=== PATIENT | female | born 1940 | race Caucasian/White ===

== ENCOUNTER → 2024-10-09 | Outpatient (CLI) | payer MEDICARE, BC, OTHER, SELFPAY ==
[2024-10-09 12:12] LABS: Basophils % (Auto) 1 % (0-2.5); Eosinophils # (Auto) 0.1 Thou/mm3 (0.0-0.5); Eosinophils % (Auto) 3 % (0-10); Hematocrit 48.4 % (36.0-46.0); Hemoglobin 15.2 g/dL (12.0-16.0); Immature Granulocytes % (Auto) 0 % (0-0); Immature Granulocytes Auto 0.01 Thou/mm3 (0.00-0.00); Lymphocytes # (Auto) 0.9 Thou/mm3 (1.0-4.8); Lymphocytes % (Auto) 25 % (10-50); Mean Corpuscular HGB Conc 31.4 g/dl (31.0-37.0); Mean Corpuscular Hemoglobin 29.6 pg (25.0-35.0); Mean Corpuscular Volume 94 fL (80-100); Monocytes # (Auto) 0.7 Thou/mm3 (0.0-0.8); Monocytes % (Auto) 18 % (0-12); Neutrophils % (Auto) 53 % (37-80); Nucleated Red Blood Cell % 0 /100 WBC (0); Platelet Count 166 Thou/mm3 (140-440); RDW Standard Deviation 52.5 fL (36.4-46.3); Red Blood Count 5.13 Miln/mm3 (4.00-5.20); White Blood Count 3.8 Thou/mm3 (3.6-11.0)
[2024-10-09 12:23] LABS: Albumin, Serum 4.4 gm/dL (3.4-4.8); Anion Gap 10 (7-16); BUN/Creatinine Ratio 45 Ratio (12-20); Blood Urea Nitrogen 68 mg/dL (9-23); Calcium 9.6 mg/dL (8.3-10.6); Calcium (Corrected) 9.6 mg/dL (8.5-10.1); Chloride 89 mMol/L (98-107); Creatinine (Component) 1.5 mg/dL (0.6-1.3); Glucose 100 mg/dL (74-106); Osmolality,Calculated 297 (275-295); Phosphorous 4.9 mg/dL (2.4-5.1); Potassium 3.3 mMol/L (3.4-5.1); Sodium 139 mMol/L (136-145); eGFR 34 See Note
[2024-10-09 12:27] LABS: B-Type Natriuretic Peptide 130 pg/mL (0-100)
== END | disposition home or self-care (01) ==
LOC: COPL 11:23
PROVIDERS: PCP Specialist; Referring Provider Specialist; Visit Provider Specialist
DX: I11.0 Hypertensive heart disease with heart failure (principal); I50.43 Acute on chronic combined systolic (congestive) and diastolic (congestive) heart failure
CPT/HCPCS: 36415; 80069; 83880; 85025

== ENCOUNTER 2024-12-31 10:59 | Inpatient (IN) | payer MEDICARE, BC, OTHER, SELFPAY ==
[2024-12-31] VITALS (10 sets, daily range): BP systolic 124–202; BP diastolic 75–111; PULSE 68–99; RESP 17–92; TEMP 36.4–37.7; O2SAT 93–98; BMI 21.4
--- NOTE | 2024-12-31 11:09 | EKG_ITS ---
[facility] Test Date: 2024-12-31 Pat Name: ESTELA BELLO Department: Room: - Gender: Female [employer]: : 1940 Requested By: Lele Iyer Order Number: [id number] Reading MD: Lele Iyer Measurements Intervals [place] Rate: 82 P: LA: QRS: -84 QRSD: 165 T: 99 QT: 399 QTc: 467 Interpretive Statements ELECTRONIC VENTRICULAR PACEMAKER ABNORMAL RHYTHM ECG Compared to ECG 05/08/2024 10:52:30 No significant changes /store/S0/[id number].pdf
--- NOTE | 2024-12-31 11:09 | XR_ITS ---
Examination: AP chest single view Technique: AP portable upright chest single view Exam date and time: December 31, 2024 1141 hrs. Comparison May 07, 2024 Indications: Sepsis shortness of breath today. Findings: Mild CHF Moderate enlargement cardiac contour Aortic valve replacement Thoracic aortic stent Cardiac leads satisfactory position Prominent vascular congestion with perihilar edema Right base pneumonia Prominent osteopenia Impression: Mild CHF Right base pneumonia
--- NOTE | 2024-12-31 11:10 | PD.EDADULT ---
ED General RME/HPI General Chief complaint: Shortness of Breath/Dyspnea Stated complaint: SOB Time Seen by Provider: 12/31/24 11:07 Arrival date/time: 12/31/24 10:59 CC: Shortness of breath HPI ongoing for past several days patient presents to the ER via EMS who report patient oxygen saturations of 85% on 1 L nasal cannula that she is wearing at home. They immediately put her on 6 L he responded 96% the patient has obvious gurgling is tachypneic tachycardic. Related Data Home Medications ?Medication ?Instructions ?Recorded ?Confirmed primidone 250 mg tablet 250 mg PO BID 10/29/19 05/08/24 apixaban 5 mg tablet (Eliquis) 5 mg PO DAILY 08/15/23 05/08/24 atorvastatin 40 mg tablet 40 mg PO QPM 08/15/23 05/08/24 dapagliflozin propanediol 10 mg 10 mg PO QAM 08/15/23 05/08/24 tablet (Farxiga) levothyroxine 75 mcg tablet 75 mcg PO QDAY 08/15/23 05/08/24 (Synthroid) potassium chloride 20 mEq/15 mL 20 meq PO EVERYOTHERDAY 08/15/23 05/08/24 oral liquid vortioxetine 10 mg tablet 10 mg PO QDAY 08/15/23 05/08/24 (Trintellix) carboxymethylcellulose sodium 1 % 1 drp ophthalmic (eye) BID 05/08/24 05/08/24 eye liquid gel drops carboxymethylcellulose sodium 1 % 2 drp ophthalmic (eye) BID 05/08/24 05/08/24 eye liquid gel drops magnesium oxide 400 mg PO QDAY 05/08/24 05/08/24 Previous Rx's ?Medication ?Instructions ?Recorded hydrocodone 5 mg-acetaminophen 325 1 tab PO Q6H PRN pain (scale score 08/16/23 mg tablet 7-10) #20 tabs losartan 25 mg tablet 25 mg PO QDAY #30 tabs 05/10/24 Allergies Allergy/AdvReac Type Severity Reaction Status Date / Time Penicillins Allergy Mild Rash Verified 05/07/24 09:03 Sulfa (Sulfonamide Allergy Mild Rash Verified 05/07/24 09:03 Antibiotics) Review of Systems Review of Systems Narrative Review of Systems: GEN: No fever, no chills, no weight loss EYES: No discharge, no visual changes, no pain HEENT: No ear pain, no congestion, no sore throat PULM: + shortness of breath, no cough, no congestion CV: No chest pain, no dyspnea on exertion, no palpitations GI: No nausea, no vomiting, no diarrhea, no pain, no constipation : No frequency, no urgency, no dysuria MUSC/SKEL: No joint pain, no back pain SKIN: No rash PSYCH: No hallucinations, no depression HEME/LYMPH: No easy bleeding or bruising tendencies NEURO: No weakness, no headache Past Medical History Past Medical History NEUROLOGIC: Positive Cerebrovascular Accident (x2) and Transient Ischemic Attacks (TIA); Negative Seizures CARDIAC: Positive Cardiac Disorders, Cardiac Arrhythmia, Atrial Fibrillation, Coronary Artery Disease, Hypercholesterolemia, Congestive Heart Failure, Valvular Heart Disease, Edema, Pericarditis and Hypertension RESPIRATORY: Positive Chronic Obstructive Pulmonary Disease (COPD), Pneumonia and Pulmonary Edema GASTROINTESTINAL: Negative Gastrointestinal Disorders GENITOURINARY: Negative Genitourinary Disorders or Renal Disease REPRODUCTIVE: Positive Previous Pregnancies MUSCULOSKELETAL: Positive Musculoskeletal Disorders, Rheumatoid Arthritis and Gout ENT: Positive Cataracts and Deafness ENDOCRINE: Positive Endocrine Disorders and Hypothyroidism; Negative Diabetes Mellitus Type 1 or Diabetes Mellitus Type 2 HEMATOLOGIC: Negative Blood Disorders PSYCHO/SOCIAL: Positive Depression OTHER HISTORY: Positive Cancer; Negative Autoimmune Disease, Blood Transfusions, Blood Transfusion Reaction or Anesthesia Reactions Family History FAMILY HISTORY: Negative Family Psychiatric Problems, Family Respiratory Disorders, Family Cardiac Disorders, Family Gastrointestinal Problems, Family Cancer, Family Surgery or Family Anesthesia Reaction Surgical History SURGICAL: Positive Cardiac Surgery, Open Heart Surgery (Mitral valve), Valve Replacement (Mitral valve, TAVR), Coronary Stent, Pacemaker, Angiogram, Ear Surgery, Abdominal Surgery and Hysterectomy Social History SMOKING STATUS: Former smoker SECOND HAND EXPOSURE: No SUBSTANCE USE: does not use ED Exam Narrative Physical exam: [General: Thin but not emaciated, in mild discomfort but not in any acute distress Head normocephalic HEENT: Within acceptable limits Neck is supple nontender Chest equal chest rise nontender to palpation Respiratory: Audible expiratory crackles bibasilar no wheezing. CV: Rate rhythm is regular tachycardic no murmurs rubs or clicks Abdomen is soft nontender no masses positive bowel sounds all 4 quadrants Back: No CVA tenderness no spinous process tenderness from cervical spine thoracic and lumbar spine Skin: Intact no petechiae rash induration ulceration or crepitus Extremities: Moving all extremity against resistance cap refill less than 2 seconds neurosensory intact Neuro: Awake alert oriented x2, person and place, Glascow coma 15 no focal deficits] Course Course Course Narrative: Patient's case clinical condition and laboratory results as well as diagnostic imaging discussed with resident for Dr. Tovar, attending agrees to accept the patient for admission. Quality Measures none Orders Category Date Time Status Bedside COVID-19 Antigen Test NOW Care 12/31/24 11:07 Active Bedside Influenza A&B Antigen Test NOW Care 12/31/24 11:10 Completed Electrical Intern STAT Care 12/31/24 11:09 Active Continuous Pulse Oximetry STAT Care 12/31/24 11:09 Completed EKG (ED ONLY) *Do not use* NOW Care 12/31/24 11:09 Completed In and Out Catheter X1PRN Care 12/31/24 11:09 Active Insert IV NOW Care 12/31/24 11:09 Active NPO STAT Care 12/31/24 11:09 Active Strict Intake and Output Routine Care 12/31/24 11:09 Ordered EKG (ED Only) Stat Exams 12/31/24 11:09 Draft XR chest 1V SEPSIS PROTOCOL Stat Exams 12/31/24 11:09 Completed ABG [Arterial Blood Gas] Stat Lab 12/31/24 11:54 Completed B-Type Natriuretic Peptide Stat Lab 12/31/24 12:20 Completed Blood Culture (Lab) Stat Lab 12/31/24 12:20 Received CBC Stat Lab 12/31/24 12:20 Completed Comprehensive Metabolic Panel Stat Lab 12/31/24 12:20 Completed LDH (Lactate Dehydrogenase) Stat Lab 12/31/24 12:20 Completed Lactate (Lactic Acid) Stat Lab 12/31/24 12:20 Results Lipase Stat Lab 12/31/24 12:20 Completed Magnesium Stat Lab 12/31/24 12:20 Completed Partial Thromboplastin Time Stat Lab 12/31/24 12:20 Completed Phosphorous Stat Lab 12/31/24 12:20 Completed Procalcitonin Stat Lab 12/31/24 12:20 Completed Prothrombin Time with INR Stat Lab 12/31/24 12:20 Completed Troponin I Stat Lab 12/31/24 12:20 Completed Urinalysis Stat Lab 12/31/24 11:09 Ordered Urine Culture Stat Lab 12/31/24 11:09 Ordered Ondansetron Inj [Zofran Inj] Med 12/31/24 12:20 Discontinued 4 mg .ROUTE .STK-MED ONE Ondansetron Inj [Zofran Inj] Med 12/31/24 12:20 Discontinued 4 mg IV X1 ONE cefTRIAXone [Rocephin] 1,000 mg Med 12/31/24 12:06 Discontinued Sodium Chloride 0.9% (P) [Ns 0.9% (P)] 50 ml IV NOW hydrALAZINE INJ [Apresoline Inj] Med 12/31/24 12:05 Discontinued 10 mg IV X1 ONE Oxygen Delivery NOW RT 12/31/24 11:09 Active Vital Signs Vital signs: Vital Signs Temperature 99.3 F 12/31/24 11:03 Pulse Rate 68 12/31/24 11:03 Respiratory Rate 18 12/31/24 11:03 Blood Pressure 195/101 H 12/31/24 11:03 Pulse Oximetry (%) 93 L 12/31/24 11:03 Oxygen Delivery Method Nasal Cannula 12/31/24 11:03 Oxygen Flow Rate 6 12/31/24 11:03 [facility] Patient data External records reviewed:: [facility] previous records and EMS form Clinical information provided by:: patient and EMS Social determinants that could affect healthcare access:: none Patient has the following chronic illnesses:: CAD A-fib congestive heart failure pacemaker How is presenting disease/condition affected by chronic disease/condition?: exacerbated by Evaluation data The following diagnostics were reviewed and interpreted by me:: lab results, radiology exam(s) and EKG tracing(s) Lab and/or radiology exams considered but not ordered:: EKG performed at 1203 shows a ventricular rate of 82 QRS of 165 QTc of 437 is electronically ventricular paced rhythm with pacer spikes. Influenza A positive Chest x-ray shows significant right base pneumonia as interpreted by me read by radiology CBC shows no significant leukocytosis no anemia or thrombocytopenia Coags within acceptable limits ABG shows a pH of 7.30 pCO2 56 pO2 of 65 bicarb of 28. CMP shows sodium 142 potassium 3.5 chloride 104 CO2 of 25.4 gap of 13 BUN of 24 creatinine 1.0 glucose of 122 Lactic of 2.1 Pro-Raman of 0.10 T. bili of 1.0, mild elevated transaminases Troponin at 0.032 BNP of 1172 Lipase of 41. Interpretation Summary: Patient is hypoxemic influenza A positive with pneumonia Medications Medications considered but not ordered:: None Medication administrations:: Medication Administration History Discontinued Medications Hydralazine HCl (Hydralazine Inj 20 Mg/Ml Vial) 10 mg IV X1 ONE Stop: 12/31/24 12:06 Last Admin: 12/31/24 12:14 Dose: 10 mg Documented By: LINDA Ceftriaxone Sodium 1,000 mg/ (Sodium Chloride) 50 mls @ 100 mls/hr IV NOW ONE Stop: 12/31/24 12:35 Last Admin: 12/31/24 12:34 Dose: 100 mls/hr Documented By: JULISSA Ondansetron HCl (Ondansetron Inj 2 Mg/Ml Inj 2 Ml) 4 mg IV X1 ONE; Protocol Stop: 12/31/24 12:21 Last Admin: 12/31/24 12:34 Dose: 4 mg Documented By: JULISSA Ondansetron HCl (Ondansetron Inj 2 Mg/Ml Inj 2 Ml) Confirm Administered Dose 4 mg .ROUTE .STK-MED ONE Stop: 12/31/24 12:21 Last Admin: 12/31/24 12:36 Dose: Not Given Documented By: JULISSA Non-Admin Reason: Duplicate Medication on eMAR None Consultations Consultation(s) initiated? (list below): No Diagnosis Differential Diagnosis ED Complaint MDM: Pneumonia hypoxemia sepsis Most likely diagnosis given after review of the tests above:: Pneumonia hypoxia influenza shortness of breath Admission Indicated Admission indicated?: indicated Explain why admission is indicated or not indicated:: Further medical management Admission Request Was there a request for admission?: No Disposition Plan Disposition Plan: Admit Medical Decision Making Differential Diagnosis Differential Diagnosis: Pneumonia hypoxemia sepsis Lab Data 12/31/24 12:20 12/31/24 12:20 Labs: Lab Results 12/31/24 12/31/24 Range/Units 11:54 12:20 WBC 11.7 H (3.6-11.0) Thou/mm3 RBC 5.04 (4.00-5.20) Miln/mm3 Hgb 15.4 (12.0-16.0) g/dL Hct 49.0 H (36.0-46.0) % MCV 97 (80-100) fL MCH 30.6 (25.0-35.0) pg MCHC 31.4 (31.0-37.0) g/dl RDW Std Deviation 63.5 H (36.4-46.3) fL Plt Count 171 (140-440) Thou/mm3 Neut % (Auto) 83 H (37-80) % Lymph % (Auto) 9 L (10-50) % [place] % (Auto) 8 (0-12) % Eos % (Auto) 0 (0-10) % Baso % (Auto) 0 (0-2.5) % Neut # (Auto) 9.7 H (1.8-7.7) Thou/mm3 Lymph # (Auto) 1.1 (1.0-4.8) Thou/mm3 [place] # (Auto) 0.9 H (0.0-0.8) Thou/mm3 Eos # (Auto) 0.0 (0.0-0.5) Thou/mm3 Baso # (Auto) 0.0 (0.0-0.2) Thou/mm3 Immature Gran # (Auto) 0.04 H (0.00-0.00) Thou/mm3 Absolute Nucleated RBC 0.00 (0.00-0.00) Thou/mm3 Immature Gran % 0 (0-0) % Nucleated RBC % 0 (0) /100 WBC PT 13.0 H (9.0-12.2) Seconds INR 1.2 (0.9-1.3) APTT 28.2 (22.0-36.0) Seconds Puncture Site Right Radial ABG pH 7.30 L (7.35-7.45) ABG pCO2 56 H (32.0-48.0) mmHg ABG pO2 65 L (83-108) mmHg ABG HCO3 28 H (20-26) mEq/L ABG O2 Saturation 92 (91-98) % ABG Base Excess 0 (-3-3) Oxygen Liter Flow 6 L/min FiO2 21 % Sodium 142 (136-145) mMol/L Potassium 3.5 (3.4-5.1) mMol/L Chloride 104 (98-107) mMol/L Carbon Dioxide 25.4 (20.0-31.0) mMol/L Anion Gap 13 (7-16) BUN 24 H (9-23) mg/dL Creatinine 1.0 (0.6-1.3) mg/dL Estim Creat Clear Calc 29.0 L (>60) mL/min eGFR 55 L (60 - ) See Note BUN/Creatinine Ratio 24 H (12-20) Ratio Glucose 122 H (74-106) mg/dL Calculated Osmolality 288 (275-295) Lactic Acid 2.1 H (0.4-2.0) mMol/L Calcium 9.5 (8.3-10.6) mg/dL Corrected Calcium 9.5 (8.5-10.1) mg/dL Phosphorus 3.7 (2.4-5.1) mg/dL Magnesium 2.4 (1.6-2.6) mg/dL Total Bilirubin 1.0 (0.3-1.2) mg/dL AST 62 H (0-34) U/L ALT 74 H (10-49) U/L Alkaline Phosphatase 256 H (46-116) U/L Lactate Dehydrogenase 266 H (120-246) U/L Troponin I 0.032 (0.0-0.045) ng/mL B-Natriuretic Peptide 1172 H* (0-100) pg/mL Total Protein 7.7 (5.7-8.2) gm/dL Albumin 4.5 (3.4-4.8) gm/dL Globulin 3.2 (2.3-3.5) gm/dL Albumin/Globulin Ratio 1.4 (1.2-2.2) Lipase 41 (12-53) U/L Procalcitonin 0.10 (0.0-0.49) ng/ml Discharge Plan Plan Patient Disposition: Other Care w/in Hosp ([facility]) Patient condition on transfer: Stable Prescriptions/Referrals Prescriptions/Med Rec: No Action primidone 250 mg Tablet 250 mg PO BID atorvastatin 40 mg Tablet 40 mg PO QPM potassium chloride 20 mEq/15 mL Liquid 20 meq PO EVERYOTHERDAY levothyroxine [Synthroid] 75 mcg Tablet 75 mcg PO QDAY Eliquis 5 mg Tablet 5 mg PO DAILY Trintellix 10 mg Tablet 10 mg PO QDAY dapagliflozin propanediol [Farxiga] 10 mg Tablet 10 mg PO QAM hydrocodone-acetaminophen 5-325 mg tablet 1 tab PO Q6H MDD 4 PRN (Reason: pain (scale score 7-10)) Qty: 20 0RF carboxymethylcellulose sodium 1 % Drops, Liquid Gel 2 drp OPHTHALMIC (EYE) BID Rx Instructions: right eye carboxymethylcellulose sodium 1 % Drops, Liquid Gel 1 drp OPHTHALMIC (EYE) BID Rx Instructions: left eye magnesium oxide 400 mg magnesium Tablet 400 mg PO QDAY losartan 25 mg tablet 25 mg PO QDAY Qty: 30 0RF Referrals: Isak Paniagua [Primary Care Provider] - In 1 week Problem List Clinical Impression: Pneumonia, Hypoxia, Influenza A, Shortness of breath Patient/Caregiver Discharge Instructions Print Language: Libyan Stand Alone Forms: Renetta Award Info., Patient Portal Info Letter PA/WORKERS' COMPENSATION MEDIATOR Supervising Physician PA/WORKERS' COMPENSATION MEDIATOR Supervising Physician: Lele Hoang ENP
[2024-12-31 12:05] LABS: Base Excess 0 (-3-3); HCO3 28 mEq/L (20-26); Inspired O2, VO2 Liters 6 L/min; Inspired Oxygen, FIO2 21 %; O2 Saturation 92 % (91-98); PCO2 56 mmHg (32.0-48.0); PO2 65 mmHg (83-108)
[2024-12-31 12:08] LABS: Allen Test Not Performed; Puncture Site Right Radial
[2024-12-31] MEDS: hydrALAZINE INJ 20 MG/ML VIAL 10 MG IV (12:14)
[2024-12-31] MEDS: cefTRIAXone 1,000 MG in SODIUM CHLORIDE 0.9% (P) 50 ML 100 MG IV (12:34)
[2024-12-31] MEDS: ONDANSETRON INJ 2 MG/ML INJ 2 ML 4 MG IV (12:34)
[2024-12-31 12:45] LABS: Lactate (Lactic Acid) 2.1 mMol/L (0.4-2.0)
[2024-12-31 13:01] LABS: Basophils % (Auto) 0 % (0-2.5); Eosinophils % (Auto) 0 % (0-10); Hemoglobin 15.4 g/dL (12.0-16.0); Immature Granulocytes % (Auto) 0 % (0-0); Immature Granulocytes Auto 0.04 Thou/mm3 (0.00-0.00); Lymphocytes # (Auto) 1.1 Thou/mm3 (1.0-4.8); Lymphocytes % (Auto) 9 % (10-50); Mean Corpuscular HGB Conc 31.4 g/dl (31.0-37.0); Mean Corpuscular Hemoglobin 30.6 pg (25.0-35.0); Mean Corpuscular Volume 97 fL (80-100); Monocytes # (Auto) 0.9 Thou/mm3 (0.0-0.8); Monocytes % (Auto) 8 % (0-12); Neutrophils # (Auto) 9.7 Thou/mm3 (1.8-7.7); Neutrophils % (Auto) 83 % (37-80); Nucleated Red Blood Cell % 0 /100 WBC (0); Platelet Count 171 Thou/mm3 (140-440); RDW Standard Deviation 63.5 fL (36.4-46.3); Red Blood Count 5.04 Miln/mm3 (4.00-5.20); White Blood Count 11.7 Thou/mm3 (3.6-11.0)
[2024-12-31 13:10] LABS: INR 1.2 (0.9-1.3); Partial Thromboplastin Time 28.2 Seconds (22.0-36.0)
[2024-12-31 13:16] LABS: B-Type Natriuretic Peptide 1172 pg/mL (0-100)
[2024-12-31 13:21] LABS: Alanine Aminotransferase 74 U/L (10-49); Albumin, Serum 4.5 gm/dL (3.4-4.8); Albumin/Globulin Ratio 1.4 (1.2-2.2); Alkaline Phosphatase 256 U/L (46-116); Anion Gap 13 (7-16); Aspartate Amino Transferase 62 U/L (0-34); BUN/Creatinine Ratio 24 Ratio (12-20); Blood Urea Nitrogen 24 mg/dL (9-23); Calcium 9.5 mg/dL (8.3-10.6); Calcium (Corrected) 9.5 mg/dL (8.5-10.1); Carbon Dioxide 25.4 mMol/L (20.0-31.0); Chloride 104 mMol/L (98-107); Globulin 3.2 gm/dL (2.3-3.5); Glucose 122 mg/dL (74-106); LDH (Lactate Dehydrogenase) 266 U/L (120-246); Lipase 41 U/L (12-53); Magnesium 2.4 mg/dL (1.6-2.6); Osmolality,Calculated 288 (275-295); Phosphorous 3.7 mg/dL (2.4-5.1); Potassium 3.5 mMol/L (3.4-5.1); Sodium 142 mMol/L (136-145); Total Protein 7.7 gm/dL (5.7-8.2); Troponin I 0.032 ng/mL (0.0-0.045); eGFR 55 See Note
[2024-12-31 14:02] LABS: Thyroid Stimulating Hormone 6.88 uIU/mL (0.55-4.78)
--- NOTE | 2024-12-31 15:09 | ESHP_ITS ---
<Statement entered by Ollie Tovar MD - 01/10/25 08:03> I reviewed above note and agree with findings and plans. I have also personally examined the patient with medicine team and went over assessment and plan with medical team including internet researcher and resident physician. <Statement entered by Dago Hendrickson MD - 01/01/25 13:00> Senior Resident Attestation: I supervised/discussed management plan with internet researcher physician Dr. Young, and was involved in the care of this patient. I personally saw and examined the patient and discussed the assessment and plan with the entire medicine team, including my attending. I agree with the assessment and plan as documented. Patient is a 84 years old female with PMHx of HFpEF (55-60%), aortic valve replacement and MVR (2013), dual chamber pacemaker, paroxysmal afib/flutter (s/p Ablation), incarcerated hernia repair (2022), ?COPD, chronic respiratory failure on 1L at home, previous smoker, HTN, CAD s/p PCI 3 stents, ?CABG, hypothyroidism, HLD who presented due to SOB and some chest pain, was found to have pneumonia on CXR and to be flu positive and was admitted due to [facility] for further management. Patient's care was discussed with attending physician, Dr. Tovar. Dago Hendrickson MD PGY-2. Documentation for date of: 12/31/24 HPI History of Present Illness History of present illness: Sammi is a 84 y/o female with PMHx of HFpEF (55-60%), Aortic valve replacement and MVR (2013), dual chamber pacemaker, paroxysmal afib/flutter (s/p Ablation), incarated hernia repair (2022), ? COPD, chronic respiratory failure on 1L at home, previous smoker, HTN, CAD s/p PCI 3 stents, ?CABG, hypothyroidism, HLD, who comes for evaluation for SOB and some chest pain, onset this morning, saturating 85 percent at home, with associated cough and fatigue. Pt reports having similar symptoms to these before. She does report that she was hospitalized at [facility] 3 months ago for pneumonia and similar symptoms. After this hospitalized, she was given 1L home oxygen. She had her temperature measured at home which was 99.1. Of note, pt's last week in [facility]. She has been having family come up to take care of her since her 's . Daughter present at bedside had said that she may have had possible small strokes in the past. Daughter also says that she is very hard of hearing and also may have dementia, however is able to respond to questions. Daughter also says that family will come help patient at home, however longterm has not been ruled out at this time. Denies any recent travel, however does say sick contact last week was her who as well. Also said that she was on a water pill at 1 point and lost about 20 pounds and is not on it anymore. Denies having history of coronary artery bypass grafts, but does say that she has had 3 stents before, and has had open heart surgery for her valve repairs and replacements. Denies getting the gait a is stable flu shot this year. ED course: Patient had arrived with a temperature of 99.3, heart rate of 68, tachypneic, saturating 85% on 1 L. She was worked up and was found to have a sodium 142, potassium 3.5, bicarb of 25, BUN/creatinine of 24 and 1.0 respectively, blood sugar of 122, lactate of 2.1, AST ALT 62 and 74 respectively, magnesium of 2.4, phosphorus 3.7, BNP of 1172, white count of 11.7. ABG was done which showed pH of 7.3, pCO2 56, bicarb of 28. Troponin 0.032, Pro-Raman 0.10, lipase 41. EKG showed paced rhythm. Chest x-ray did show mild CHF and right base pneumonia. She was given Rocephin x 1 hydralazine 10 mg IV, was put on 6 L. Medicine was consulted and patient was made to floors PMHx: As above Surgical Hx: Hysterectomy, hernia repair, PCI, ?CABG, Valve replacements including MVR and aortic valve replacement Allergies: Pencilins and sulfa abx Meds: Metoprolol 25 mg, magnesium 1 mg, Eliquis 2.5, primidone 250 mg twice daily, Trintellix 10 mg once a day, digoxin, Lipitor 40, Farxiga 10 mg, Synthroid 75 mcg Family history: Brother of a brain aneurysm in 50s, of heart failure, mother of cirrhosis, other brother of cirrhosis Social history: Was born in [facility] [place] Is able to walk on her own, uses 1 L of oxygen at baseline. Has roughly about [id number]-utwm smoking history but quit in the 70s. Has half a glass of wine once a month, has never been a heavy drinker. No history of IV or oral drug use. Lives alone as her last week. Review of Systems Review of Systems Narrative Review of Systems: Constitutional: No fever, chills, fatigue, weakness, weight loss HEENT: No eye pain, vision loss, ear pain, hearing loss, dysphagia, Cardiovascular: + chest pain, palpitations, edema, pain with walking Respiratory: No cough, + shortness of breath, no wheezing GI: No NVD, abdominal pain, constipation, blood in stool, loss of appetite, heartburn Extremities: No presence of pitting edema MSK: No back pain, joint pain, joint swelling Neuro: No dizziness, numbness, weakness, headaches, seizures, tremors Psych: No anxiety, depression Exam Vital Signs Temp Pulse Resp BP Pulse Ox O2 Del Method O2 Flow Rate 99.3 F 91 36 H 124/99 H 94 L Nasal Cannula 9 12/31/24 11:03 12/31/24 12:45 12/31/24 12:45 12/31/24 12:45 12/31/24 12:45 12/31/24 12:45 12/31/24 12:45 Narrative Exam General: AAOx3, elderly, frail, appears to be weak and and in some mild distress HEENT: Dry mucous membranes, conjunctiva clear, EOMI, PERRLA, Cardiovascular: Ejection systolic murmur heard in the right upper sternal border, radial pulses +2 bilaterally Pulmonary: No crackles appreciated, no cough, expiratory wheezing GI: No tenderness to light or deep palpitation, no guarding, rigidity, rebound tenderness or distension Extremities: No presence of trace or pitting edema in lower extremities bilaterally, dorsalis pedis pulses +2 bilaterally, venous stasis present bilaterally Neuro: AAOx3, no focal motor or sensory deficits in the UE or LE bilat Psych: Good judgement, thought and behavior. Cooperative Results: Labs 12/31/24 12:20 12/31/24 12:20 Labs: Short CBC 12/31/24 Range/Units 12:20 WBC 11.7 H (3.6-11.0) Thou/mm3 Hgb 15.4 (12.0-16.0) g/dL Hct 49.0 H (36.0-46.0) % Plt Count 171 (140-440) Thou/mm3 BMP 12/31/24 12:20 Sodium 142 Potassium 3.5 Chloride 104 Carbon Dioxide 25.4 BUN 24 H Creatinine 1.0 Glucose 122 H Calcium 9.5 Cardiac Enzymes 12/31/24 Range/Units 12:20 Troponin I 0.032 (0.0-0.045) ng/mL Liver Function 12/31/24 Range/Units 12:20 Total Bilirubin 1.0 (0.3-1.2) mg/dL AST 62 H (0-34) U/L ALT 74 H (10-49) U/L Alkaline Phosphatase 256 H (46-116) U/L Albumin 4.5 (3.4-4.8) gm/dL ABG Interpretation ABG results: 12/31/24 11:54 ABG pH 7.30 L ABG pCO2 56 H ABG pO2 65 L ABG HCO3 28 H ABG O2 Saturation 92 ABG Base Excess 0 Quality Measures Quality Measures none Advance care planning discussed with:: patient Medications Home Medications and Allergies Home Medications ?Medication ?Instructions ?Recorded ?Confirmed ?Type primidone 250 mg tablet 250 mg PO BID 10/29/1905/08 History apixaban 5 mg tablet (Eliquis) 5 mg PO DAILY 08/15/23 05/08/24 History atorvastatin 40 mg tablet 40 mg PO QPM 08/15/23 History dapagliflozin propanediol 10 mg 10 mg PO QAM 08/15/23 05/08/24 History tablet (Farxiga) levothyroxine 75 mcg tablet 75 mcg PO QDAY 08/15/23 History (Synthroid) potassium chloride 20 mEq/15 mL 20 meq PO EVERYOTHERDA Y 08/15/23 05/08/24 History oral liquid vortioxetine 10 mg tablet 10 mg PO QDAY 08/15/2305/08 History (Trintellix) carboxymethylcellulose sodium 1 % 1 drp ophthalmic (ey e) BID 05/08/24 05/08/24 History eye liquid gel drops carboxymethylcellulose sodium 1 % 2 drp ophthalmic (ey e) BID 05/08/24 05/08/24 History eye liquid gel drops magnesium oxide 400 mg PO QDAY 05/08/24 06/04/06 History Allergies Allergy/AdvReac Type Severity Reaction Status Date / Time Penicillins Allergy Mild Rash Verified 05/07/24 09:03 Sulfa (Sulfonamide Allergy Mild Rash Verified 05/07/24 09:03 Antibiotics) Visit Medications Acetaminophen (Acetaminophen 325 Mg Tablet) 1,000 mg PO Q6H PRN PRN Reason: Fever >100 or pain 1-3 Stop: 01/30/25 14:51 Enoxaparin Sodium (Enoxaparin Sod Inj 40 Mg/0.4 Ml Syringe) 40 mg SC QDAY [facility] Stop: 01/15/25 08:59 Ipratropium Sycamore (Ipratropium Rt 0.5 Mg/ 2.5 Ml Nebu) mg INH Q6HRRT ROD Stop: 01/30/25 18:59 Levalbuterol HCl (Levalbuterol Rt 0.63 Mg/3 Ml Nebu) 0.63 mg INH Q6HRRT ROD Stop: 01/30/25 18:59 Ondansetron HCl (Ondansetron Inj 2 Mg/Ml Inj 2 Ml) 4 mg IV Q6H PRN; Protocol PRN Reason: NAUSEA OR VOMITING Stop: 01/30/25 14:51 Sennosides (Senna Tablet) 1 tab PO BID PRN; Protocol PRN Reason: CONSTIPATION Stop: 01/30/25 14:51 Discontinued Medications Hydralazine HCl (Hydralazine Inj 20 Mg/Ml Vial) 10 mg IV X1 ONE Stop: 12/31/24 12:06 Last Admin: 12/31/24 12:14 Dose: 10 mg Ceftriaxone Sodium 1,000 mg/ (Sodium Chloride) 50 mls @ 100 mls/hr IV NOW ONE Stop: 12/31/24 12:35 Last Infusion: 12/31/24 13:05 Dose: Infused Ondansetron HCl (Ondansetron Inj 2 Mg/Ml Inj 2 Ml) 4 mg IV X1 ONE; Protocol Stop: 12/31/24 12:21 Last Admin: 12/31/24 12:34 Dose: 4 mg Potassium Chloride (Potassium Chloride 20 Meq Tabcr) 40 meq PO X1 ONE Stop: 12/31/24 13:34 Assessment & Plan Plan Assessment Sammi is a 84 y/o female with PMHx of HFpEF (55-60%), Aortic valve replacement and MVR (2013), dual chamber pacemaker, paroxysmal afib/flutter (s/p Ablation), incarated hernia repair (2022), ? COPD, chronic respiratory failure on 1L at home, previous smoker, HTN, CAD s/p PCI 3 stents, ?CABG, hypothyroidism, HLD, was admitted for acute hypoxic respiratory failure secondary to influenza pneumonia and possible superimposed bacterial infection #Acute toxic respiratory failure #Influenza pneumonia #? Superimposed bacterial infection #Chronic respiratory failure, on 1 L home oxygen #? COPD Patient recently had tragedy including her dying last week There was concern that patient had sick contact of her Patient does confirm that she did not get the flu shot this year Will be able to cover for commune acquired pneumonia current antibiotic regimen will change if needed Plan: ? Tamiflu 75 mg twice daily ? Rocephin and azithromycin IV ? Follow-up blood cultures ? Follow-up MRSA nares ? Follow-up cocci ? Atrovent and Xopenex every 6 hours ? Wean down oxygen as tolerated #Hypertensive urgency, resolved ? Was given 10 mg IV hydralazine in ED #Acute on chronic exacerbation of HFpEF #History of paroxysmal A-fib/flutter status post ablation #History of dual-chamber pacemaker #History of aortic valve replacement MVR Patient is requiring higher oxygen requirement BNP of 1172, chest x-ray shows mild CHF pattern, however no lower extremity edema appreciated This could be contributing to patient's increased oxygen requirements Takes farxiga at home but does not take water pill Sees Dr. Paniagua in [place] Plan: ? Consider cardiology consult ? Strict YVETTE's ? 2 g sodium diet ? Daily weights ? Keep magnesium and potassium above 2 and 4 respectively to avoid any cardiac arrhythmias ? Will resume GDMT therapy as tolerated ? Lasix 40 mg IV with goal diuresis of -2.5 L ? Follow-up digoxin level ? Continue with Eliquis 2.5 mg twice daily #History of hypothyroidism Plan: ? Resumed home Synthroid 75 mcg #History of CAD status post PCI 3 stents #History of hypertension #History of HLD Is believed that patient does not take aspirin Patient denies having CABG history however does say that she has had 3 stents Previous charts say that patient has had CABG history Plan: ? Will resume home blood pressure medicines as tolerated ? Resumed home Lipitor 40 mg at bedtime #Elevated transaminases DDx: Medication side effect, shock liver, AST 62, ALT 74 Plan: ? Trend with CMP #Health Maintenance Disposition: Telemetry DVT prophylaxis: Eliquis 2.5 mg BID GI prophylaxis: None indicated Diet: Cardiac if patient passes bedside eval CODE STATUS: Full Patient seen and care discussed with my senior resident, Dr. Hendrickson , and my attending physician, Dr. Guy Young, PGY-1
[2024-12-31 15:41] LABS: Reflex Lactate? Y
[2024-12-31 16:11] LABS: Lactic Acid, 3 HR 1.9 mMol/L (0.4-2.0)
[2024-12-31 16:50] LABS: Free T4 (Free Thyroxine) 1.25 ng/dL (0.89-1.76)
[2024-12-31] MEDS: OSELTAMIVIR 75 MG CAPSULE PO (17:01)
[2024-12-31] MEDS: APIXABAN 2.5 MG TABLET PO (17:02)
[2024-12-31] MEDS: POTASSIUM CHLORIDE 20 mEq TABCR 40 MEQ PO (17:03)
[2024-12-31] MEDS: FUROSEMIDE INJ 10 MG/ML 4ML VIAL 40 MG IVP (17:05)
[2024-12-31] MEDS: AZITHROMYCIN INJ 500 MG in SODIUM CHLORIDE 0.9% 250 ML 250 ML 250 MG IV (17:08)
[2024-12-31] MEDS: IPRATROPIUM RT 0.5 MG/ 2.5 ML NEBU INH (18:16)
[2024-12-31] MEDS: LEVALBUTEROL RT 0.63 MG/3 ML NEBU INH (18:16)
--- NOTE | 2024-12-31 18:39 | PC.NURSE ---
received a 85 years old female patient from er via [facility] to room 265.patient is awake, alert and verbaly responsive and able to voice needs. kept comfortable in bed.
[2024-12-31 20:32] LABS: Collection Type, Urine Clean Catch
[2024-12-31 20:41] LABS: Bilirubin,Urine Negative (Negative); Blood,Urine Negative (Negative); Clarity,Urine Clear (Clear/Hazy); Color,Urine Lt-Yellow (Lt Yel-Yel); Glucose, Urine 3+ (Negative); Ketones,Urine Negative (Negative); Leukocyte Esterase,Urine Negative (Negative); Nitrite,Urine Negative (Negative); Protein,Urine 1+ (Neg - Trace); RBC,Urine 1 /hpf (0-3); Specific Gravity,Urine 1.008 (1.001-1.035); Squamous Epithelial Cell,Urine < 1 /hpf (0-5); Urobilinogen,Urine Negative mg/dL (0.0-1.0); WBC,Urine < 1 /hpf (0-5)
[2025-01-01] VITALS (14 sets, daily range): BP systolic 129–156; BP diastolic 68–98; PULSE 70–99; RESP 16–97; TEMP 36.6–37; O2SAT 93–99; BMI 20.1
[2025-01-01] MEDS: LEVALBUTEROL RT 0.63 MG/3 ML NEBU INH ×4 (01:55→17:45)
[2025-01-01] MEDS: IPRATROPIUM RT 0.5 MG/ 2.5 ML NEBU INH ×2 (01:55→07:47)
--- NOTE | 2025-01-01 06:10 | PC.NURSE ---
Not able to complete all admission questions; pt very hard of hearing and hearing aid not functioning at this time; will endorse to primary day rn.
[2025-01-01 06:26] LABS: Basophils % (Auto) 0 % (0-2.5); Eosinophils % (Auto) 0 % (0-10); Hematocrit 41.3 % (36.0-46.0); Hemoglobin 13.2 g/dL (12.0-16.0); Immature Granulocytes % (Auto) 0 % (0-0); Immature Granulocytes Auto 0.02 Thou/mm3 (0.00-0.00); Lymphocytes # (Auto) 0.6 Thou/mm3 (1.0-4.8); Lymphocytes % (Auto) 7 % (10-50); Mean Corpuscular Hemoglobin 30.8 pg (25.0-35.0); Mean Corpuscular Volume 96 fL (80-100); Monocytes # (Auto) 0.6 Thou/mm3 (0.0-0.8); Monocytes % (Auto) 7 % (0-12); Neutrophils # (Auto) 6.7 Thou/mm3 (1.8-7.7); Neutrophils % (Auto) 85 % (37-80); Nucleated Red Blood Cell % 0 /100 WBC (0); Platelet Count 115 Thou/mm3 (140-440); RDW Standard Deviation 62.5 fL (36.4-46.3); Red Blood Count 4.29 Miln/mm3 (4.00-5.20); White Blood Count 7.9 Thou/mm3 (3.6-11.0)
[2025-01-01 06:42] LABS: Glucose Estimated Average 97 mg/dL (80-131)
--- NOTE | 2025-01-01 06:45 | PC.NURSE ---
Able to get ahold of pts son in law and dtr over the phone to complete admission questions.
[2025-01-01 06:49] LABS: Alanine Aminotransferase 49 U/L (10-49); Albumin, Serum 3.6 gm/dL (3.4-4.8); Albumin/Globulin Ratio 1.4 (1.2-2.2); Alkaline Phosphatase 162 U/L (46-116); Anion Gap 11 (7-16); Aspartate Amino Transferase 40 U/L (0-34); BUN/Creatinine Ratio 24 Ratio (12-20); Bilirubin,Total 0.6 mg/dL (0.3-1.2); Blood Urea Nitrogen 29 mg/dL (9-23); Calcium 9.2 mg/dL (8.3-10.6); Calcium (Corrected) 9.5 mg/dL (8.5-10.1); Carbon Dioxide 27.3 mMol/L (20.0-31.0); Cardiac Risk Estimate 1.5 RATIO (3.7-5.6); Chloride 107 mMol/L (98-107); Cholesterol 99 mg/dL (132-200); Creatinine (Component) 1.2 mg/dL (0.6-1.3); Digoxin 0.4 ng/mL (0.8-2.0); Estimated Creatinine Clearance 24.2 mL/min (>60); Globulin 2.6 gm/dL (2.3-3.5); Glucose 86 mg/dL (74-106); HDL Cholesterol 64 mg/dL (40-60); LDL Cholesterol,Calculated 27 mg/dL (0-130); Magnesium 2.2 mg/dL (1.6-2.6); Osmolality,Calculated 293 (275-295); Phosphorous 4.4 mg/dL (2.4-5.1); Potassium 4.7 mMol/L (3.4-5.1); Sodium 145 mMol/L (136-145); Total Protein 6.2 gm/dL (5.7-8.2); Triglycerides 42 mg/dL (30-150); eGFR 44 See Note
[2025-01-01] MEDS: Artificial Tears 225 DROP/15 ML BTL BOTH EYES (08:32)
[2025-01-01] MEDS: FUROSEMIDE INJ 10 MG/ML 4ML VIAL 40 MG IVP (08:33)
[2025-01-01] MEDS: APIXABAN 2.5 MG TABLET PO ×2 (08:33→20:58)
[2025-01-01] MEDS: PRIMIDONE 50 MG TABLET 250 MG PO ×2 (09:11→20:57)
[2025-01-01] MEDS: OSELTAMIVIR 30 MG CAPSULE PO ×2 (09:11→23:18)
--- NOTE | 2025-01-01 09:19 | PCS.ST ---
Swallow Evaluation completed. See report for details. Recommend Dysphagia 3/regular liquids.
--- NOTE | 2025-01-01 09:25 | PC.NURSE ---
Pt. provided with printed information about Influenza A per request.
[2025-01-01] MEDS: DIGOXIN 0.125 MG TABLET PO (10:46)
[2025-01-01] MEDS: cefTRIAXone 1,000 MG in SODIUM CHLORIDE 0.9% (P) 50 ML 100 MG IV ×2 (10:47→20:57)
[2025-01-01] MEDS: ACETAMINOPHEN 500 MG TABLET 1000 MG PO ×2 (10:54→20:17)
--- NOTE | 2025-01-01 13:17 | ESPR_ITS ---
Documentation for date of: 01/01/25 Subjective Subjective Interval history: Pt examined at bedside today. No acute overnight events. Pt reports her SOB has been improving. She still has some lingering cough but it is improving. She just wants to improve with her flu. No other complaints at this time. Exam Vital Signs Temp Pulse Resp BP Pulse Ox O2 Del Method O2 Flow Rate 97.9 F 90 16 135/68 H 95 Nasal Cannula 1 01/01/25 12:00 01/01/25 12:00 01/01/25 12:01/01/25 12:00 01/01/25 12:01/01/25 12:01/01/25 12:00 Narrative Exam General: AAOx3, elderly, frail, appears to be weak and and in some mild distress HEENT: Dry mucous membranes, conjunctiva clear, EOMI, PERRLA, Cardiovascular: Ejection systolic murmur heard in the right upper sternal border, radial pulses +2 bilaterally Pulmonary: No crackles appreciated, no cough, expiratory wheezing GI: No tenderness to light or deep palpitation, no guarding, rigidity, rebound tenderness or distension Extremities: No presence of trace or pitting edema in lower extremities bilaterally, dorsalis pedis pulses +2 bilaterally, venous stasis present bilaterally Neuro: AAOx3, no focal motor or sensory deficits in the UE or LE bilat Psych: Good judgement, thought and behavior. Cooperative Objective Labs 01/01/25 05:37 01/02/25 05:31 Labs: Laboratory Results - last 24 hr 12/31/24 12/31/24 12/31/24 12:20 16:03 20:04 WBC RBC Hgb Hct MCV MCH MCHC RDW Std Deviation Plt Count Neut % (Auto) Lymph % (Auto) [place] % (Auto) Eos % (Auto) Baso % (Auto) Neut # (Auto) Lymph # (Auto) [place] # (Auto) Eos # (Auto) Baso # (Auto) Immature Gran # (Auto) Absolute Nucleated RBC Immature Gran % Nucleated RBC % Sodium 142 Potassium 3.5 Chloride 104 Carbon Dioxide 25.4 Anion Gap 13 BUN 24 H Creatinine 1.0 Estim Creat Clear Calc 29.0 L eGFR 55 L BUN/Creatinine Ratio 24 H Glucose [address] Glu mg/dL Hemoglobin A1c Calculated Osmolality 288 Lactic Acid 1.9 Calcium 9.5 Corrected Calcium 9.5 Phosphorus 3.7 Magnesium 2.4 Total Bilirubin 1.0 AST 62 H ALT 74 H Alkaline Phosphatase 256 H Lactate Dehydrogenase 266 H Troponin I 0.032 B-Natriuretic Peptide 1172 H* Total Protein 7.7 Albumin 4.5 Globulin 3.2 Albumin/Globulin Ratio 1.4 Triglycerides Cholesterol LDL Cholesterol, Calc HDL Cholesterol Cholesterol/HDL Ratio Lipase 41 Procalcitonin 0.10 TSH 6.88 H Free T4 1.25 Ur Collection Type Clean Catch Urine Color Lt-Yellow Urine Clarity Clear Urine pH 6.0 Ur Specific Cecil 1.008 Urine Protein 1+ A Urine Glucose (UA) 3+ A Urine Ketones Negative Urine Blood Negative Urine Nitrite Negative Urine Bilirubin Negative Urine Urobilinogen (Auto) Negative Ur Leukocyte Esterase Negative Urine RBC 1 Urine WBC < 1 Ur Squamous Epith Cells < 1 Urine Bacteria None Digoxin 01/01/25 05:37 WBC 7.9 RBC 4.29 Hgb 13.2 D Hct 41.3 MCV 96 MCH 30.8 MCHC 32.0 RDW Std Deviation 62.5 H Plt Count 115 L D Neut % (Auto) 85 H Lymph % (Auto) 7 L [place] % (Auto) 7 Eos % (Auto) 0 Baso % (Auto) 0 Neut # (Auto) 6.7 Lymph # (Auto) 0.6 L [place] # (Auto) 0.6 Eos # (Auto) 0.0 Baso # (Auto) 0.0 Immature Gran # (Auto) 0.02 H Absolute Nucleated RBC 0.00 Immature Gran % 0 Nucleated RBC % 0 Sodium 145 Potassium 4.7 D Chloride 107 Carbon Dioxide 27.3 Anion Gap 11 BUN 29 H Creatinine 1.2 Estim Creat Clear Calc 24.2 L eGFR 44 L BUN/Creatinine Ratio [address] H Glucose [address] Glu mg/dL 97 Hemoglobin A1c 5.0 Calculated Osmolality 293 Lactic Acid Calcium 9.2 Corrected Calcium 9.5 Phosphorus 4.4 Magnesium 2.2 Total Bilirubin 0.6 AST 40 H ALT 49 Alkaline Phosphatase 162 H D Lactate Dehydrogenase Troponin I B-Natriuretic Peptide Total Protein 6.2 Albumin 3.6 D Globulin 2.6 Albumin/Globulin Ratio 1.4 Triglycerides 42 Cholesterol 99 L LDL Cholesterol, Calc 27 HDL Cholesterol 64 H Cholesterol/HDL Ratio 1.5 L Lipase Procalcitonin TSH Free T4 Ur Collection Type Urine Color Urine Clarity Urine pH Ur Specific [place] Urine Protein Urine Glucose (UA) Urine Ketones Urine Blood Urine Nitrite Urine Bilirubin Urine Urobilinogen (Auto) Ur Leukocyte Esterase Urine RBC Urine WBC Ur Squamous Epith Cells Urine Bacteria Digoxin 0.4 L ABG Interpretation ABG results: 12/31/24 11:54 ABG pH 7.30 L ABG pCO2 56 H ABG pO2 65 L ABG HCO3 28 H ABG O2 Saturation 92 ABG Base Excess 0 Quality Measures Quality Measures none Advance care planning discussed with:: patient Assessment & Plan Assessment Current Active Medications: Generic Name Dose Route Start Last Admin Trade Name Freq PRN Reason Stop Dose Admin Acetaminophen 1,000 mg 01/01/25 06:49 01/01/25 10:54 Acetaminophen 500 Mg Tablet PO 01/30/25 14:51 1,000 mg Q6H PRN Administration Fever >100 or pain 1-3 Hydrocodone Bitart/Acetaminophen 1 tab 12/31/24 15:04 Hydrocodone/Apap 5/325 Tablet PO 01/05/25 15:03 Q6HR PRN pain 4-7 Apixaban 2.5 mg 01/01/25 09:00 01/01/25 08:33 Apixaban 2.5 Mg Tablet PO 01/31/25 08:59 2.5 mg BID ROD Administration Artificial Tears 1 drop 01/01/25 08:10 01/01/25 08:32 Artificial Tears 225 Drop/15 Ml Btl BOTH EYES 01/31/25 08:09 1 drop PRN PRN Administration TO KEEP EYES MOIST Atorvastatin Calcium 40 mg 01/01/25 21:00 Atorvastatin Calcium 20 Mg Tablet PO 01/30/25 20:59 HS ROD Azithromycin 250 mg 01/01/25 21:00 Azithromycin 250 Mg Tablet PO 01/08/25 20:59 HS ROD Trintellix 10 Mg 0 ea 01/01/25 09:00 01/01/25 08:12 Tablet PO 01/31/25 08:59 Not Given QDAY ROD Digoxin 0.125 mg 01/01/25 10:30 01/01/25 10:46 Digoxin 0.125 Mg Tablet PO 01/31/25 10:29 0.125 mg QDAY ROD Administration Furosemide 40 mg 01/01/25 09:00 01/01/25 08:33 Furosemide Inj 10 Mg/Ml 4ml Vial IVP 01/31/25 08:59 40 mg QDAY ROD Administration Ceftriaxone Sodium 1,000 mg/ 50 mls @ 100 mls/hr 01/01/25 10:21 01/01/25 10:47 Sodium Chloride IV 01/08/25 10:20 100 mls/hr Q12HR ROD Administration Levalbuterol HCl 0.63 mg 12/31/24 19:00 01/01/25 07:47 Levalbuterol Rt 0.63 Mg/3 Ml Nebu INH 01/30/25 18:59 0.63 mg Q6HRRT ROD Administration Levothyroxine Sodium 75 mcg 01/01/25 06:00 01/01/25 07:18 Levothyroxine Sodium 25 Mcg Tablet PO 01/31/25 05:59 Not Given ACBR ROD Ondansetron HCl 4 mg 12/31/24 14:52 Ondansetron Inj 2 Mg/Ml Inj 2 Ml IV 01/30/25 14:51 Q6H PRN NAUSEA OR VOMITING Protocol Oseltamivir Phosphate 30 mg 01/01/25 09:00 01/01/25 09:11 Oseltamivir 30 Mg Capsule PO 01/08/25 08:59 30 mg Q12H ROD Administration Protocol Primidone 250 mg 12/31/24 21:00 01/01/25 09:11 Primidone 50 Mg Tablet PO 01/05/25 20:59 250 mg Q12H ROD Administration Sennosides 1 tab 12/31/24 14:52 Senna Tablet PO 01/30/25 14:51 BID PRN CONSTIPATION Protocol Plan Assessment Sammi is a 84 y/o female with PMHx of HFpEF (55-60%), Aortic valve replacement and MVR (2013), dual chamber pacemaker, paroxysmal afib/flutter (s/p Ablation), incarated hernia repair (2022), ? COPD, chronic respiratory failure on 1L at home, previous smoker, HTN, CAD s/p PCI 3 stents, ?CABG, hypothyroidism, HLD, was admitted for acute hypoxic respiratory failure secondary to influenza pneumonia and possible superimposed bacterial infection #Acute on chronic respiratory failure, improving #Influenza pneumonia #Superimposed bacterial infection, CAP #Chronic respiratory failure, on 1 L home oxygen #? COPD Patient recently had tragedy including her dying last week There was concern that patient had sick contact of her Patient does confirm that she did not get the flu shot this year Pt is back to oxygen baseline of 1 L and is improving Cocci negative BC no growth after one day Plan: ? Tamiflu 75 mg twice daily ? Rocephin 1g and azithromycin 250 mg IV (day 12/31-) ? Follow-up blood cultures ? Follow-up MRSA nares ? Follow-up sputum ? Xopenex q6h ? Wean down oxygen as tolerated #Hypertensive urgency, resolved ? Was given 10 mg IV hydralazine in ED #Acute on chronic exacerbation of HFpEF #History of paroxysmal A-fib/flutter status post ablation #History of dual-chamber pacemaker #History of aortic valve replacement MVR Patient is requiring higher oxygen requirement BNP of 1172, chest x-ray shows mild CHF pattern, however no lower extremity edema appreciated This could be contributing to patient's increased oxygen requirements Takes farxiga at home but does not take water pill Sees Dr. Paniagua in [facility] level unremarkable Plan: ? Consider cardiology consult ? Strict YVETTE's ? 2 g sodium diet ? Daily weights ? Keep magnesium and potassium above 2 and 4 respectively to avoid any cardiac arrhythmias ? Will resume GDMT therapy as tolerated ? Resumed home digoxin ? Lasix 40 mg IV with goal diuresis of -2.5 L ? Continue with Eliquis 2.5 mg twice daily ? Resuming home Farxiga 5mg tomorrow, 10 mg starting 01/03 #History of hypothyroidism #Subclinical hypothyroidism TSH 6.88 ; Free T4 normal Plan: ? Continue with home Synthroid 75 mcg ? Recommend recheck TSH 6-8 weeks #History of CAD status post PCI 3 stents #History of hypertension #History of HLD Is believed that patient does not take aspirin Patient denies having CABG history however does say that she has had 3 stents Previous charts say that patient has had CABG history Plan: ? Resumed home Metoprolol XL 25 mg PO ? Continue home Lipitor 40 mg at bedtime #Elevated transaminases, improving DDx: Medication side effect, shock liver, AST 40, ALT 49 Plan: ? Trend with CMP #Health Maintenance Disposition: Telemetry DVT prophylaxis: Eliquis 2.5 mg BID GI prophylaxis: None indicated Diet: Cardiac CODE STATUS: Full Patient seen and care discussed with my senior resident, Dr. Hendrickson, and my attending physician, Dr. Rachel Young, PGY-1 Attending Provider Attestation/Addendum I have examined the patient, reviewed labs and imaging findings, discussed the case with the resident(s), and reviewed entered orders. I agree with the plan of care as outlined in this note, with these additional summaries/recommendations: Patient seen at bedside. No acute overnight events. Today patient reports minimal improvement in her shortness of breath. Continue supplemental oxygen for acute on chronic hypoxic respiratory failure and wean as tolerated. Continue Tamiflu for influenza and IV antibiotics for likely superimposed bacterial pneumonia. Continue breathing treatments. Blood pressure much improved and will titrate antihypertensive regimen as needed. Continue goal- directed medical therapy for congestive heart failure and diuresis. Home digoxin resumed and digoxin level subtherapeutic. Continue Eliquis for history of paroxysmal A-fib. Continue Synthroid for history of hypothyroidism. Patient updated on plan and in agreement. Repeat hematology and chemistry panel in AM. Dr. Ramos
[2025-01-01 13:56] LABS: Cocci Serology, IgM Negative (Negative)
--- NOTE | 2025-01-01 14:43 | PC.SS ---
Rounding Note: Patient currently on 3L oxygen. Discharge date is pending.
[2025-01-01] MEDS: METOPROLOL SUCCINATE XL 25 MG TABCR PO (15:45)
--- NOTE | 2025-01-01 16:58 | PC.PT ---
PT eval only. Patient is xI with bed mobility, transfers, and ambulation using DME. Patient is safe to ambulate in her room and to the bathroom using a FWW, O2, and 1 staff assist for safety. RN made aware.
[2025-01-01 18:05] LABS: INR 1.3 (0.9-1.3); Partial Thromboplastin Time 37.9 Seconds (22.0-36.0)
[2025-01-01] MEDS: ATORVASTATIN CALCIUM 20 MG TABLET 40 MG PO (20:17)
[2025-01-01] MEDS: AZITHROMYCIN 250 MG TABLET PO (20:17)
[2025-01-02] VITALS (11 sets, daily range): BP systolic 144–172; BP diastolic 81–99; PULSE 70–99; RESP 14–94; TEMP 36.4–36.8; O2SAT 90–100; BMI 20.7
[2025-01-02] MEDS: LEVALBUTEROL RT 0.63 MG/3 ML NEBU INH ×2 (00:40→07:07)
[2025-01-02] MEDS: ACETAMINOPHEN 500 MG TABLET 1000 MG PO (05:08)
[2025-01-02] MEDS: LEVOTHYROXINE SODIUM 25 MCG TABLET 75 MCG PO (05:08)
[2025-01-02 06:21] LABS: Alanine Aminotransferase 47 U/L (10-49); Albumin, Serum 3.8 gm/dL (3.4-4.8); Albumin/Globulin Ratio 1.3 (1.2-2.2); Alkaline Phosphatase 176 U/L (46-116); Anion Gap 9 (7-16); Aspartate Amino Transferase 38 U/L (0-34); BUN/Creatinine Ratio 25 Ratio (12-20); Bilirubin,Total 0.7 mg/dL (0.3-1.2); Blood Urea Nitrogen 28 mg/dL (9-23); Calcium 9.4 mg/dL (8.3-10.6); Calcium (Corrected) 9.6 mg/dL (8.5-10.1); Carbon Dioxide 28.6 mMol/L (20.0-31.0); Chloride 101 mMol/L (98-107); Creatinine (Component) 1.1 mg/dL (0.6-1.3); Estimated Creatinine Clearance 26.4 mL/min (>60); Globulin 2.9 gm/dL (2.3-3.5); Glucose 92 mg/dL (74-106); Magnesium 2.1 mg/dL (1.6-2.6); Osmolality,Calculated 283 (275-295); Phosphorous 3.6 mg/dL (2.4-5.1); Potassium 4.6 mMol/L (3.4-5.1); Sodium 139 mMol/L (136-145); Total Protein 6.7 gm/dL (5.7-8.2); eGFR 49 See Note
[2025-01-02 07:52] LABS: Basophils % (Auto) 0 % (0-2.5); Eosinophils # (Auto) 0.1 Thou/mm3 (0.0-0.5); Eosinophils % (Auto) 1 % (0-10); Hematocrit 40.7 % (36.0-46.0); Hemoglobin 13.2 g/dL (12.0-16.0); Immature Granulocytes % (Auto) 1 % (0-0); Immature Granulocytes Auto 0.03 Thou/mm3 (0.00-0.00); Lymphocytes # (Auto) 0.5 Thou/mm3 (1.0-4.8); Lymphocytes % (Auto) 8 % (10-50); Mean Corpuscular HGB Conc 32.4 g/dl (31.0-37.0); Mean Corpuscular Hemoglobin 30.7 pg (25.0-35.0); Mean Corpuscular Volume 95 fL (80-100); Monocytes # (Auto) 0.5 Thou/mm3 (0.0-0.8); Monocytes % (Auto) 8 % (0-12); Neutrophils # (Auto) 5.3 Thou/mm3 (1.8-7.7); Neutrophils % (Auto) 82 % (37-80); Nucleated Red Blood Cell % 0 /100 WBC (0); RDW Standard Deviation 60.4 fL (36.4-46.3); White Blood Count 6.4 Thou/mm3 (3.6-11.0)
--- NOTE | 2025-01-02 08:41 | PC.NURSE ---
Called pt. family to bring in home meds trintellix and home eye drops. Family agrees to bring to unit today
[2025-01-02] MEDS: DIGOXIN 0.125 MG TABLET PO (08:52)
[2025-01-02] MEDS: Furosemide 40 MG TABLET PO (08:52)
[2025-01-02] MEDS: METOPROLOL SUCCINATE XL 25 MG TABCR PO (08:52)
[2025-01-02] MEDS: PRIMIDONE 50 MG TABLET 250 MG PO ×2 (08:53→21:19)
[2025-01-02] MEDS: OSELTAMIVIR 30 MG CAPSULE PO ×2 (08:53→21:17)
[2025-01-02] MEDS: APIXABAN 2.5 MG TABLET PO ×2 (08:53→21:17)
[2025-01-02] MEDS: cefTRIAXone 1,000 MG in SODIUM CHLORIDE 0.9% (P) 50 ML 100 MG IV (08:54)
--- NOTE | 2025-01-02 09:04 | PC.NURSE ---
Dr. Young aware pt. still complains of a headache. Dr. Young orders change PRN tylenol from q6hto q4h. If this dose does not help the pt. headache, let me know and I will order something else.
[2025-01-02] MEDS: DAPAGLIFLOZIN PROPANEDIOL 5 MG TABLET PO (09:09)
[2025-01-02] MEDS: ACETAMINOPHEN 325 MG TABLET 650 MG PO (09:09)
--- NOTE | 2025-01-02 10:49 | PC.NURSE ---
Pharmacy to bring gisell.
[2025-01-02] MEDS: VORTIOXETINE 5 MG TABLET (NON FORMULARY) 10 MG PO (11:32)
[2025-01-02 12:58] LABS: Cocci Serology, IgG Negative (Negative)
--- NOTE | 2025-01-02 14:23 | ESPR_ITS ---
<Statement entered by Dgao Hendrickson MD - 01/02/25 18:20> Senior Resident Attestation: I supervised/discussed management plan with internal sales physician Dr. Young, and was involved in the care of this patient. I personally saw and examined the patient and discussed the assessment and plan with the entire medicine team, including my attending. I agree with the assessment and plan as documented. Patient's care was discussed with attending physician, Dr. Ramos. Dago Hendrickson MD PGY-2. Documentation for date of: 01/02/25 Subjective Subjective Interval history: 01/01/2025: Pt examined at bedside today. No acute overnight events. Pt reports her SOB has been improving. She still has some lingering cough but it is improving. She just wants to improve with her flu. No other complaints at this time. 01/02/2025: Patient examined at bedside today. No acute overnight events. She reports that she did not sleep well last night. She reports that her respiratory status is still good and she is still on 1 L oxygen. She does reiterate that she uses oxygen at night but be without it throughout the day. She is msking when she can go home. No other complaints this time Exam Vital Signs Temp Pulse Resp BP Pulse Ox O2 Del Method O2 Flow Rate 97.5 F 89 26 H 152/93 H 96 Nasal Cannula 1 01/02/25 12:00 01/02/25 12:00 01/02/25 12:00 01/02/25 12:00 01/02/25 12:00 01/02/25 12:01/02/25 12:00 Narrative Exam General: AAOx3, elderly, frail, appears to be weak and and in some mild distress HEENT: Dry mucous membranes, conjunctiva clear, EOMI, PERRLA, Cardiovascular: Ejection systolic murmur heard in the right upper sternal border, radial pulses +2 bilaterally Pulmonary: No crackles appreciated, no cough, expiratory wheezing GI: No tenderness to light or deep palpitation, no guarding, rigidity, rebound tenderness or distension Extremities: No presence of trace or pitting edema in lower extremities bilaterally, dorsalis pedis pulses +2 bilaterally, venous stasis present bilaterally Neuro: AAOx3, no focal motor or sensory deficits in the UE or LE bilat Psych: Good judgement, thought and behavior. Cooperative Objective Labs 01/03/25 05:22 01/03/25 05:22 Labs: Laboratory Results - last 24 hr 12/31/24 01/01/25 01/02/25 16:03 05:37 05:31 WBC 6.4 RBC 4.30 Hgb 13.2 Hct 40.7 MCV 95 MCH 30.7 MCHC 32.4 RDW Std Deviation 60.4 H Plt Count 130 L Neut % (Auto) 82 H Lymph % (Auto) 8 L [place] % (Auto) 8 Eos % (Auto) 1 Baso % (Auto) 0 Neut # (Auto) 5.3 Lymph # (Auto) 0.5 L [place] # (Auto) 0.5 Eos # (Auto) 0.1 Baso # (Auto) 0.0 Immature Gran # (Auto) 0.03 H Absolute Nucleated RBC 0.00 Immature Gran % 1 H Nucleated RBC % 0 PT 14.0 H INR 1.3 APTT 37.9 H Sodium 139 Potassium 4.6 Chloride 101 Carbon Dioxide 28.6 Anion Gap 9 BUN 28 H Creatinine 1.1 Estim Creat Clear Calc 26.4 L eGFR 49 L BUN/Creatinine Ratio 25 H Glucose 92 Calculated Osmolality 283 Calcium 9.4 Corrected Calcium 9.6 Phosphorus 3.6 Magnesium 2.1 Total Bilirubin 0.7 AST 38 H ALT 47 Alkaline Phosphatase 176 H Total Protein 6.7 Albumin 3.8 Globulin 2.9 Albumin/Globulin Ratio 1.3 Coccidioides IgG Ab Negative ABG Interpretation ABG results: 12/31/24 11:54 ABG pH 7.30 L ABG pCO2 56 H ABG pO2 65 L ABG HCO3 28 H ABG O2 Saturation 92 ABG Base Excess 0 Quality Measures Quality Measures none Advance care planning discussed with:: patient Assessment & Plan Assessment Current Active Medications: Generic Name Dose Route Start Last Admin Trade Name Freq PRN Reason Stop Dose Admin Acetaminophen 650 mg 01/02/25 09:01 01/02/25 09:09 Acetaminophen 325 Mg Tablet PO 01/31/25 06:48 650 mg Q4HR PRN Administration Fever >100 or pain 1-3 Hydrocodone Bitart/Acetaminophen 1 tab 12/31/24 15:04 Hydrocodone/Apap 5/325 Tablet PO 01/05/25 15:03 Q6HR PRN pain 4-7 Apixaban 2.5 mg 01/01/25 09:00 01/02/25 08:53 Apixaban 2.5 Mg Tablet PO 01/31/25 08:59 2.5 mg BID ROD Administration Artificial Tears 1 drop 01/01/25 08:10 01/01/25 08:32 Artificial Tears 225 Drop/15 Ml Btl BOTH EYES 01/31/25 08:09 1 drop PRN PRN Administration TO KEEP EYES MOIST Atorvastatin Calcium 40 mg 01/01/25 21:00 01/01/25 20:17 Atorvastatin Calcium 20 Mg Tablet PO 01/30/25 20:59 40 mg HS ROD Administration Azithromycin 250 mg 01/01/25 21:00 01/01/25 20:17 Azithromycin 250 Mg Tablet PO 01/08/25 20:59 250 mg HS ROD Administration Refresh Optive Dixon- 0 ea 01/02/25 14:00 3 Lubricant Eye BOTH EYES 02/01/25 13:59 Drops TID ROD Dapagliflozin 10 mg 01/03/25 09:00 Dapagliflozin Propanediol 5 Mg Tablet PO 02/02/25 08:59 QAM ROD Digoxin 0.125 mg 01/01/25 10:30 01/02/25 08:52 Digoxin 0.125 Mg Tablet PO 01/31/25 10:29 0.125 mg QDAY ROD Administration Furosemide 40 mg 01/02/25 09:00 01/02/25 08:52 Furosemide 40 Mg Tablet PO 02/01/25 08:59 40 mg QAM ROD Administration Ceftriaxone Sodium 1,000 mg/ 50 mls @ 100 mls/hr 01/03/25 09:00 Sodium Chloride IV 01/10/25 08:59 QDAY ROD Levalbuterol HCl 0.63 mg 01/02/25 10:20 Levalbuterol Rt 0.63 Mg/3 Ml Nebu INH 02/01/25 10:17 Q8HR PRN cough/wheezing Levothyroxine Sodium 75 mcg 01/01/25 06:00 01/02/25 05:08 Levothyroxine Sodium 25 Mcg Tablet PO 01/31/25 05:59 75 mcg ACBR ROD Administration Metoprolol Succinate 25 mg 01/02/25 09:00 01/02/25 08:52 Metoprolol Succinate Xl 25 Mg Tabcr PO 02/01/25 08:59 25 mg QDAY ROD Administration Ondansetron HCl 4 mg 12/31/24 14:52 Ondansetron Inj 2 Mg/Ml Inj 2 Ml IV 01/30/25 14:51 Q6H PRN NAUSEA OR VOMITING Protocol Oseltamivir Phosphate 30 mg 01/01/25 09:00 01/02/25 08:53 Oseltamivir 30 Mg Capsule PO 01/08/25 08:59 30 mg Q12H ROD Administration Protocol Primidone 250 mg 12/31/24 21:00 01/02/25 08:53 Primidone 50 Mg Tablet PO 01/05/25 20:59 250 mg Q12H ROD Administration Sennosides 1 tab 12/31/24 14:52 Senna Tablet PO 01/30/25 14:51 BID PRN CONSTIPATION Protocol Vortioxetine 10 mg 01/02/25 09:45 01/02/25 11:32 Vortioxetine 5 Mg Tablet (Non Formulary) PO 02/01/25 09:44 10 mg DAILY ROD Administration Plan Assessment Sammi is a 84 y/o female with PMHx of HFpEF (55-60%), Aortic valve replacement and MVR (2013), dual chamber pacemaker, paroxysmal afib/flutter (s/p Ablation), incarated hernia repair (2022), ? COPD, chronic respiratory failure on 1L at home, previous smoker, HTN, CAD s/p PCI 3 stents, ?CABG, hypothyroidism, HLD, was admitted for acute hypoxic respiratory failure secondary to influenza pneumonia and possible superimposed bacterial infection #Acute on chronic respiratory failure, improving #Influenza pneumonia #Superimposed bacterial infection, CAP #Chronic respiratory failure, on 1 L home oxygen #? COPD Patient recently had tragedy including her dying last week There was concern that patient had sick contact of her Patient does confirm that she did not get the flu shot this year Pt is back to oxygen baseline of 1 L and is improving Cocci negative BC no growth after one day MRSA negative Patient continues to improve, however would like to keep patient for 1 more day for further improvement Plan: ? Tamiflu 75 mg twice daily ? Rocephin 1g and azithromycin 250 mg IV (day 12/31-) ? Follow-up blood culture ? Follow-up sputum ? Xopenex as needed ? Wean down oxygen as tolerated #Hypertensive urgency, resolved ? Was given 10 mg IV hydralazine in ED #Acute on chronic exacerbation of HFpEF #History of paroxysmal A-fib/flutter status post ablation #History of dual-chamber pacemaker #History of aortic valve replacement MVR Patient is requiring higher oxygen requirement BNP of 1172, chest x-ray shows mild CHF pattern, however no lower extremity edema appreciated This could be contributing to patient's increased oxygen requirements Takes farxiga at home but does not take water pill Sees Dr. Paniagua in [place] Dig level unremarkable Plan: ? Consider cardiology consult ? Strict YVETTE's ? 2 g sodium diet ? Daily weights ? Keep magnesium and potassium above 2 and 4 respectively to avoid any cardiac arrhythmias ? Will resume GDMT therapy as tolerated ? Continue home digoxin ? Lasix 40 mg IV with goal diuresis of -2.5 L ? Continue with Eliquis 2.5 mg twice daily ? Continue home dose 10 mg Farxiga #History of hypothyroidism #Subclinical hypothyroidism TSH 6.88 ; Free T4 normal Plan: ? Continue with home Synthroid 75 mcg ? Recommend recheck TSH 6-8 weeks #History of CAD status post PCI 3 stents #History of hypertension #History of HLD Is believed that patient does not take aspirin Patient denies having CABG history however does say that she has had 3 stents Previous charts say that patient has had CABG history Plan: ? Continue home Metoprolol XL 25 mg PO ? Continue home Lipitor 40 mg at bedtime #Elevated transaminases, improving DDx: Medication side effect, shock liver, AST 38, ALT 47 Plan: ? Trend with CMP #Health Maintenance Disposition: Telemetry DVT prophylaxis: Eliquis 2.5 mg BID GI prophylaxis: None indicated Diet: Cardiac CODE STATUS: Full Patient seen and care discussed with my senior resident, Dr. Hendrickson, and my attending physician, Dr. Rachel Young, PGY-1 Attending Provider Attestation/Addendum I have examined the patient, reviewed labs and imaging findings, discussed the case with the resident(s), and reviewed entered orders. I agree with the plan of care as outlined in this note, with these additional summaries/recommendations: Patient seen at bedside. No acute overnight events. Today patient reports she was unable to sleep last night and is very tired. Patient's acute on chronic hypoxic respiratory failure is improving and trending towards her baseline of 1 L. Awaiting final culture results before patient can be safely discharged. Blood cultures preliminarily showed no growth at 24 hours and sputum culture pending. Continue IV antibiotics for community-acquired pneumonia. Continue Tamiflu for influenza A as well as breathing treatments. DC Belle catheter. Continue goal-directed medical therapy for CHF & Eliquis for history of A-fiib. Continue levothyroxine for hypothyroidism. Patient updated on the plan and in agreement. Patient was seen by physical therapy and patient is safe for discharge home. Repeat hematology and chemistry panel in AM. Anticipate discharge in the next [address] Rachel MD
[2025-01-02] MEDS: [UNRECOGNIZED DRUG - OTHER] BOTH EYES ×2 (14:34→21:28)
--- NOTE | 2025-01-02 15:38 | PC.SS ---
SETTLEMENT PROCESSOR conducted bedside contact with the patient conduct initial assessment and to discuss discharge planning.? Patient confirmed demographic information.? Patient resides alone at home.? Patient?s spouse recently .? Patient?s daughter, Jessica Nazario; is currently staying with the patient.? Prior to admission patient did not utilize DME to assist with ambulation.? Patient possesses home oxygen.? Patient describes ability to complete ADL?s independently.? Patient?s medical surrogate decision maker is daughter, Jessica Nazario.? Patient?s PCP is Dr. Paniagua.? Patient utilizes [facility] for medication services.? Plan is for the patient to return home at the time of discharge.? Family will provide transportation on behalf of the patient. ?No discharge needs identified by the patient.? No further intervention required at this time, social worker clinical will be available to address any further concerns.? Next of Kin: Jessica Nazario D/C Plan: Home
[2025-01-02 17:44] LABS: Platelet Count 130 Thou/mm3 (140-440)
[2025-01-02] MEDS: AZITHROMYCIN 250 MG TABLET PO (21:16)
[2025-01-02] MEDS: ATORVASTATIN CALCIUM 20 MG TABLET 40 MG PO (21:17)
[2025-01-03] VITALS (9 sets, daily range): BP systolic 137–175; BP diastolic 79–99; PULSE 70–89; RESP 17–95; TEMP 35.9–36.6; O2SAT 93–98; BMI 20.5
[2025-01-03] MEDS: hydrALAZINE INJ 20 MG/ML VIAL 10 MG IV (00:39)
[2025-01-03] MEDS: ACETAMINOPHEN 325 MG TABLET 650 MG PO (00:52)
[2025-01-03] MEDS: Artificial Tears 225 DROP/15 ML BTL BOTH EYES (01:30)
[2025-01-03] MEDS: LEVOTHYROXINE SODIUM 25 MCG TABLET 75 MCG PO (05:06)
[2025-01-03] MEDS: [UNRECOGNIZED DRUG - OTHER] BOTH EYES (05:06)
[2025-01-03 06:08] LABS: Basophils % (Auto) 0 % (0-2.5); Eosinophils # (Auto) 0.1 Thou/mm3 (0.0-0.5); Eosinophils % (Auto) 1 % (0-10); Hematocrit 44.1 % (36.0-46.0); Hemoglobin 14.7 g/dL (12.0-16.0); Immature Granulocytes % (Auto) 0 % (0-0); Immature Granulocytes Auto 0.02 Thou/mm3 (0.00-0.00); Lymphocytes # (Auto) 0.8 Thou/mm3 (1.0-4.8); Lymphocytes % (Auto) 10 % (10-50); Mean Corpuscular HGB Conc 33.3 g/dl (31.0-37.0); Mean Corpuscular Hemoglobin 31.1 pg (25.0-35.0); Mean Corpuscular Volume 93 fL (80-100); Monocytes # (Auto) 0.5 Thou/mm3 (0.0-0.8); Monocytes % (Auto) 7 % (0-12); Neutrophils # (Auto) 6.2 Thou/mm3 (1.8-7.7); Neutrophils % (Auto) 81 % (37-80); Nucleated Red Blood Cell % 0 /100 WBC (0); Platelet Count 160 Thou/mm3 (140-440); RDW Standard Deviation 58.5 fL (36.4-46.3); Red Blood Count 4.72 Miln/mm3 (4.00-5.20); White Blood Count 7.6 Thou/mm3 (3.6-11.0)
[2025-01-03 06:51] LABS: Alanine Aminotransferase 37 U/L (10-49); Albumin/Globulin Ratio 1.4 (1.2-2.2); Alkaline Phosphatase 170 U/L (46-116); Anion Gap 11 (7-16); Aspartate Amino Transferase 38 U/L (0-34); BUN/Creatinine Ratio 25 Ratio (12-20); Bilirubin,Total 0.7 mg/dL (0.3-1.2); Blood Urea Nitrogen 25 mg/dL (9-23); Calcium 9.4 mg/dL (8.3-10.6); Calcium (Corrected) 9.4 mg/dL (8.5-10.1); Carbon Dioxide 27.4 mMol/L (20.0-31.0); Chloride 102 mMol/L (98-107); Globulin 2.9 gm/dL (2.3-3.5); Glucose 91 mg/dL (74-106); Osmolality,Calculated 283 (275-295); Phosphorous 3.1 mg/dL (2.4-5.1); Potassium 3.9 mMol/L (3.4-5.1); Sodium 140 mMol/L (136-145); Total Protein 6.9 gm/dL (5.7-8.2); eGFR 55 See Note
[2025-01-03] MEDS: METOPROLOL SUCCINATE XL 25 MG TABCR PO (09:02)
[2025-01-03] MEDS: APIXABAN 2.5 MG TABLET PO (09:02)
[2025-01-03] MEDS: DAPAGLIFLOZIN PROPANEDIOL 5 MG TABLET 10 MG PO (09:02)
[2025-01-03] MEDS: VORTIOXETINE 5 MG TABLET (NON FORMULARY) 10 MG PO (09:03)
[2025-01-03] MEDS: Furosemide 40 MG TABLET PO (09:03)
[2025-01-03] MEDS: DIGOXIN 0.125 MG TABLET PO (09:03)
[2025-01-03] MEDS: guaiFENesin/DM TABLET 1 EACH PO (09:04)
[2025-01-03] MEDS: OSELTAMIVIR 30 MG CAPSULE PO (09:04)
[2025-01-03] MEDS: PRIMIDONE 50 MG TABLET 250 MG PO (09:04)
[2025-01-03] MEDS: cefTRIAXone 1,000 MG in SODIUM CHLORIDE 0.9% (Popper) 50 ML 100 MG IV (09:07)
--- NOTE | 2025-01-03 09:47 | ESDS_ITS ---
<Statement entered by Mario Weldon MD - 01/03/25 15:20> Patient was examined with the team including attending physician. Note reviewed, I agree with the discharge plan as documented. - Mario Weldon M.D. PGY2 Planned Discharge Date 01/03/25 DS: Providers Provider Date of admission: 12/31/24 14:52 Primary care physician: Isak Paniagua Admitting Provider: Ollie Tovar MD Attending Provider on Admission: Nicolás Ramos MD Consults: 01/01/25 05:53 Referral Speech Therapy Urgent Comment: 01/01/25 10:19 Referral Physical Therapy Routine Comment: Physician Instructions: Attending Provider on DC: Nicolás Ramos MD Discharging Provider: Nicolás Ramos MD DS: Diagnosis Problem List Completed Was Problem List Reviewed/Reconciled?: Yes Hospital Course Hospital Course Hospital course: Sammi is a 84 y/o female with PMHx of HFpEF (55-60%), Aortic valve replacement and MVR (2013), dual chamber pacemaker, paroxysmal afib/flutter (s/p Ablation), incarated hernia repair (2022), ? COPD, chronic respiratory failure on 1L at home, previous smoker, HTN, CAD s/p PCI 3 stents, ?CABG, hypothyroidism, HLD, who was admitted on 12/31/2024 to [facility] for influenza pneumonia and superimposed bacterial pneumonia. Of note patient recently had passed at [facility] last week. She also had some sick contacts before she came into the hospital. She had denied getting the flu shot this year. Patient had arrived with a temperature of 99.3, heart rate of 68, tachypneic, saturating 85% on 1 L. She was worked up and was found to have a sodium 142, potassium 3.5, bicarb of 25, BUN/creatinine of 24 and 1.0 respectively, blood sugar of 122, lactate of 2.1, AST ALT 62 and 74 respectively, magnesium of 2.4, phosphorus 3.7, BNP of 1172, white count of 11.7. ABG was done which showed pH of 7.3, pCO2 56, bicarb of 28. Troponin 0.032, Pro-Raman 0.10, lipase 41. EKG showed paced rhythm. Chest x-ray did show mild CHF and right base pneumonia. She was given Rocephin x 1 hydralazine 10 mg IV, was put on 6 L. Medicine was consulted and patient was made to floors. Patient was put on antibiotics covering for community-acquired pneumonia, Rocephin azithromycin while in the hospital. While patient was on the floors, patient was eventually able to get back to home oxygen requirements 1 L. It was noted that patient usually only u ses oxygen at night and does not needed throughout the day. Blood cultures were negative for patient including urine cultures. Patient also had TSH done while in the hospital, which revealed to be elevated however free T4 was normal, we recommend to recheck in 6 to 8 weeks for evaluation of subclinical hypothyroidism. As patient continued to improve we felt it was safe for patient to be discharged and to follow-up with PCP. We also recommend to continue finishing course of Tamiflu and antibiotics including Keflex and azithromycin for 4 more days. Patient also inquired about getting flu shot for this year and we had told them to discuss with primary care doctor in the lieu of getting recent infection and benefits of it getting afterwards. Patient was recommended to go to SNF, however patient refused and requested home with home health. #Acute on chronic respiratory failure, improving #Influenza pneumonia #Superimposed bacterial infection, CAP #Chronic respiratory failure, on 1 L home oxygen #? COPD #Hypertensive urgency, resolved #Acute on chronic exacerbation of HFpEF #History of paroxysmal A-fib/flutter status post ablation #History of dual-chamber pacemaker #History of aortic valve replacement MVR #History of hypothyroidism #Subclinical hypothyroidism #History of CAD status post PCI 3 stents #History of hypertension #History of HLD #Elevated transaminases, improving Discharge instructions - Follow up with PRIMARY CARE PROVIDER within 1 week - Recommend to check TSH level within 6 to 8 weeks with primary care provider as it was slightly elevated - Continue Azithromycin daily and Keflex four times a day, for 4 more days to complete antibiotic course. - Take Tamiflu as prescribed for Influenza treatment - Continue all other home medications - Return to ED if symptoms worsen Patient seen and care discussed with my senior resident, Dr. Weldon , and my attending physician, Dr. Rachel Young, PGY-1 Time Spent with Patient Time attestation: Total time spent providing and/or coordinating discharge services: Time spent: Greater than 30 minutes Home Health Home Health Referral Orders: 01/03/25 09:38 Home Health Referral Routine Reason For Exam: Physical therapy Home-Bound The patient must either because of illness or injury, need the aid of supportive devices such as crutches, canes, wheelchairs, and walkers; the use of special transportation; or the assistance of another person in order to leave their place of residence; OR have a condition such that leaving his or her home is medically contraindicated. In addition, the patient also meets the following criteria: patient is normally unable to leave the home and leaving home requires considerable taxing effort. Addendum to Home Health Certification Practitioner's Certification: I certify that the patient has been under my care in the hospital and the care of attending physician (see below). We had a [id number] encounter on (see date below). My clinical findings indicate that the patient is home bound per the above criteria and the Home Health Services noted in these orders are medically necessary. The primary reason for the [id number] encounter is related to the fact that the patient requires home health services. Date Certifying [id number] Physician Encounter: 12/31/24 Physician's Name who will Assume Oversight for Services: Isak Paniagua Physician's Phone No.who will Assume Oversight for Service: PRODUCT/DEVICE TECHNOLOGIST - Community Resources: No PT to Evaluate: Yes PT to evaluate and provide a treatmnet plan to increase patient's mobility and strength. Wound Care: No IV Therapy: No RN Safety Evaluation: Yes RN to evaluate and create a plan of care that will produce positive outcomes. Palliative Treatment: No Palliative treatment and evaluate the need for hospice. Home Health Aide - Personal Care: Yes Home Health Aide to assist with any ADL's. Exam Vital Signs Temp Pulse Resp BP Pulse Ox O2 Del Method O2 Flow Rate 96.7 F L 70 19 154/99 H 95 Nasal Cannula 1 01/03/25 08:00 01/03/25 09:03 01/03/25 08:00 01/03/25 09:03 01/03/25 08:00 01/03/25 08:00 01/03/25 08:00 Narrative Exam General: AAOx3, elderly, frail, appears to be weak and and in some mild distress HEENT: Dry mucous membranes, conjunctiva clear, EOMI, PERRLA, Cardiovascular: Ejection systolic murmur heard in the right upper sternal border, radial pulses +2 bilaterally Pulmonary: No crackles appreciated, no cough, expiratory wheezing GI: No tenderness to light or deep palpitation, no guarding, rigidity, rebound tenderness or distension Extremities: No presence of trace or pitting edema in lower extremities bilaterally, dorsalis pedis pulses +2 bilaterally, venous stasis present bilaterally Neuro: AAOx3, no focal motor or sensory deficits in the UE or LE bilat Psych: Good judgement, thought and behavior. Cooperative Discharge Plan Plan Patient Disposition: Home w/HOME HEALTH Patient condition on transfer: Stable Care Plan Goals: - Follow up with PRIMARY CARE PROVIDER within 1 week ? We recommend you to check your TSH levels within 6 to 8 weeks with your primary care provider as it was slightly elevated - Continue Azithromycin daily and Keflex four times a day, for 4 more days to complete antibiotic course. - Take Tamiflue as prescribed for Influenza treatment - Continue all other home medications - Return to ED if symptoms worsen Prescriptions/Referrals Prescriptions/Med Rec: New cephalexin 500 mg capsule 500 mg PO Q6H 4 Days Qty: 16 0RF Rx Instructions: Take 1 capsule every 6 hours azithromycin 250 mg tablet 250 mg PO QDAY 4 Days Qty: 4 0RF Rx Instructions: Take one tablet every day for four days oseltamivir [Tamiflu] 30 mg capsule 30 mg PO BID 4 Days Qty: 8 0RF Rx Instructions: Take one capsule twice a day by mouth Continued primidone 250 mg Tablet 250 mg PO BID atorvastatin 40 mg Tablet 40 mg PO QPM potassium chloride 20 mEq/15 mL Liquid 20 meq PO EVERYOTHERDAY levothyroxine [Synthroid] 75 mcg Tablet 75 mcg PO QDAY Eliquis 5 mg Tablet 2.5 mg PO Q12H Trintellix 10 mg Tablet 10 mg PO QDAY dapagliflozin propanediol [Farxiga] 10 mg Tablet 10 mg PO QAM metoprolol succinate 25 mg tablet extended release 24 hr PO Patient Comments: TAKE 1 TABLET DAILY carboxymethylcellulose sodium 1 % Drops, Liquid Gel 1 drp OPHTHALMIC (EYE) BID Rx Instructions: left eye magnesium oxide 400 mg magnesium Tablet 400 mg PO QDAY Referrals: Isak Paniagua [Primary Care Provider] - Patient/Caregiver Discharge Instructions Discharge Activity: resume usual activities Education Materials: Preventing Pneumonia, The Flu (Influenza) Print Language: Cypriot Stand Alone Forms: Renetta Award Info., Patient Portal Info Letter Discharge Order Discharge Orders: Discharge (Routine); Ordered 01/03/25 Ordered By: Mario Weldon Quality Discharge Quality Measures VTE prophylaxis (Eliquis) Attestestation MD Attestation I have examined the patient, reviewed labs and imaging findings, discussed the case with the resident(s), and reviewed entered orders. I agree with the plan of care as outlined in this note. Dr. Rachel MD
--- NOTE | 2025-01-03 11:44 | PC.SS ---
Update: Plan is to d/c patient home today.
--- NOTE | 2025-01-05 08:36 | PC.CC ---
Addendum entered by Mariann Khan RN 01/05/25 09:10: [facility] accepted the pt. Booked [facility]. Pending start of care date. Original Note: No documentation from [facility] on pt preference for HH agency. HH referral sent on [facility]. Awaiting responses. Pending start of care date.
--- NOTE | 2025-01-07 07:14 | PC.CC ---
Pt accepted to [facility] is 01/08/25
--- NOTE | 2025-01-10 11:55 | PC.NURSE ---
late entry- discharge patient all personal belongings given to patient except silver ring, according to patient daughter has the silver ring.
== END 2025-01-03 14:42 | disposition home health service (06) | DRG 193 ==
LOC: SERX 13:35 → SERHOLD 15:16 → S2NX 18:37
PROVIDERS: Registered Nurse General Practice; Admitting Provider Internal Medicine; Emergency Provider Emergency Medicine; PCP Specialist; Visit Provider Student in an Organized Health Care Education/Training Program
DX: J10.00 Influenza due to other identified influenza virus with unspecified type of pneumonia (principal); I50.33 Acute on chronic diastolic (congestive) heart failure; J96.21 Acute and chronic respiratory failure with hypoxia; J44.0 Chronic obstructive pulmonary disease with (acute) lower respiratory infection; I48.92 Unspecified atrial flutter; J15.9 Unspecified bacterial pneumonia; I11.0 Hypertensive heart disease with heart failure; I16.0 Hypertensive urgency; E78.5 Hyperlipidemia, unspecified; I25.10 Atherosclerotic heart disease of native coronary artery without angina pectoris; I48.0 Paroxysmal atrial fibrillation; E03.8 Other specified hypothyroidism; H91.90 Unspecified hearing loss, unspecified ear; Z99.81 Dependence on supplemental oxygen; Z95.1 Presence of aortocoronary bypass graft; Z63.4 Disappearance and death of family member; Z95.0 Presence of cardiac pacemaker; Z98.61 Coronary angioplasty status; Z95.2 Presence of prosthetic heart valve; Z79.01 Long term (current) use of anticoagulants; Z79.899 Other long term (current) drug therapy; Z87.891 Personal history of nicotine dependence; Z90.710 Acquired absence of both cervix and uterus; R74.01 Elevation of levels of liver transaminase levels; Z11.52 Encounter for screening for COVID-19; Z88.0 Allergy status to penicillin; Z88.2 Allergy status to sulfonamides
CPT/HCPCS: 36415; 36600; 71045; 80053; 80061; 80162; 81001; 82803; 83036; 83605; 83615; 83690; 83735; 83880; 84100; 84145; 84439; 84443; 84484; 85025; 85610; 85730; 86331; 86635; 87040; 87081; 87086; 87205; 87400; 87811; 92526; 92610; 93005; 94640; 96365; 96375; 97162; 99285; J0360; J0456; J0696; J1940; J2405; J7050; J8499; A9270

== ENCOUNTER 2025-01-10 10:59 | Outpatient (AMB) | payer MEDICARE, BC, OTHER, SELFPAY ==
--- NOTE | 2025-01-10 11:23 | PD.RESCLINIC ---
Vital Signs 01/10/25 11:24 Height 1.6 m Height Method Stated Weight 49.045 kg Weight Measurement Method Standing Scale BMI 19.1 BP 127/76 Blood Pressure Source Automatic Cuff Blood Pressure Location Left Upper Arm Position Sitting Respiration 18 Pulse 77 Pulse Source Monitor Temp 97.1 F Temp Source Temporal Artery Scan Pulse Oximetry (%) 91 L Oxygen Delivery Method Room Air Allergies/Meds Allergies & Medications Allergies Penicillins Allergy (Mild, Verified 01/10/25 11:27) Rash Sulfa (Sulfonamide Antibiotics) Allergy (Mild, Verified 01/10/25 11:27) Rash Medication Reconciliation primidone 250 mg tablet 250 mg PO BID 10/29/19 [History Confirmed 01/10/25] apixaban 5 mg tablet (Eliquis) 2.5 mg PO Q12H 08/15/23 [History Confirmed 01/10/25] atorvastatin 40 mg tablet 40 mg PO QPM 08/15/23 [History Confirmed 01/10/25] dapagliflozin propanediol 10 mg tablet (Farxiga) 10 mg PO QAM 08/15/23 [History Confirmed 01/10/25] levothyroxine 75 mcg tablet (Synthroid) 75 mcg PO QDAY 08/15/23 [History Confirmed 01/10/25] potassium chloride 20 mEq/15 mL oral liquid 20 meq PO EVERYOTHERDAY 08/15/23 [History Confirmed 01/10/25] vortioxetine 10 mg tablet (Trintellix) 10 mg PO QDAY 08/15/23 [History Confirmed 01/10/25] carboxymethylcellulose sodium 1 % eye liquid gel drops 1 drp ophthalmic (eye) BID 05/08/24 [History Confirmed 01/10/25] magnesium oxide 400 mg PO QDAY 05/08/24 [History Confirmed 01/10/25] metoprolol succinate 25 mg tablet,extended release 24 hr mg PO 01/01/25 [History Confirmed 01/10/25] albuterol sulfate 90 mcg/actuation aerosol inhaler 1 inh inhalation QID PRN shortness of breath or wheezing 1 month #6.7 grams 01/10/25 [Rx] benzonatate 100 mg capsule 100 mg PO BID PRN cough 30 days #60 caps 01/10/25 [Rx] GUILLERMO Intake Visit Data Collection New Patient or Established: Established Patient (seen at [facility] within 3 years) Seen by Clinical Staff ONLY (RN/MA): No Pain Present Currently: No Pain scale:: 0 Pain Scale Used: Monique-Jaquez/Numerical Database Administrator Required: No PCP or OBGYN visit in last 3 months: No Hx Now: No Do You Feel Safe at Home: Yes Authorities Contacted: N/A Smoking Status Smoking Status: Former smoker Immunization / Flu Flu Vaccine in the Last 12 Months: No Flu Vaccine Exclusion Criteria: No Exclusion Criteria Past Medical History Past Medical History NEUROLOGIC: Positive Cerebrovascular Accident (forgetful per family) and Transient Ischemic Attacks (TIA); Negative Seizures CARDIAC: Positive Cardiac Disorders, Cardiac Arrhythmia, Atrial Fibrillation, Coronary Artery Disease, Hypercholesterolemia, Congestive Heart Failure, Valvular Heart Disease, Edema, Pericarditis and Hypertension RESPIRATORY: Positive Chronic Obstructive Pulmonary Disease (COPD), Pneumonia and Pulmonary Edema GASTROINTESTINAL: Negative Gastrointestinal Disorders GENITOURINARY: Negative Genitourinary Disorders or Renal Disease REPRODUCTIVE: Positive Previous Pregnancies MUSCULOSKELETAL: Positive Rheumatoid Arthritis and Gout ENT: Positive Cataracts and Deafness ENDOCRINE: Positive Endocrine Disorders and Hypothyroidism; Negative Diabetes Mellitus Type 1 or Diabetes Mellitus Type 2 HEMATOLOGIC: Negative Blood Disorders PSYCHO/SOCIAL: Positive Depression OTHER HISTORY: Positive Cancer; Negative Autoimmune Disease, Blood Transfusions, Blood Transfusion Reaction or Anesthesia Reactions Family History FAMILY HISTORY: Negative Family Psychiatric Problems, Family Respiratory Disorders, Family Cardiac Disorders, Family Gastrointestinal Problems, Family Cancer, Family Surgery or Family Anesthesia Reaction Surgical History SURGICAL: Positive Cardiac Surgery, Open Heart Surgery, Valve Replacement, Coronary Stent, Pacemaker, Angiogram, Ear Surgery, Abdominal Surgery and Hysterectomy Social History SMOKING STATUS: Smoking status: Former smoker SECOND HAND EXPOSURE: second hand exposure: No ALCOHOL: Alcohol Intake: Current ALCOHOL FREQUENCY: Alcohol Intake Frequency: holidays/special occasions only HOUSING: Housing: House LIVES WITH: Lives With: Alone Patient Portal Maria Fernanda Social History Living Situation History Housing: House Tobacco History Smoking Status: Former smoker Second Hand Smoke Exposure: No Alcohol History Alcohol Intake: Current Alcohol Intake Frequency: holidays/special occasions only Domestic Abuse History Do You Feel Safe at Home: Yes Review of Systems Report any current symptoms Only answer those that you have currently: Past Medical History Past Medical History Have you ever been diagnosed with any of the following: Neurological Problems Cerebrovascular Accident (CVA): Yes (forgetful per family) Transient Ischemic Attacks (TIA): Yes Seizures: No Cardiology Problems Cardiac Arrhythmia: Yes Atrial Fibrillation: Yes Coronary Artery Disease: Yes Hypercholesterolemia: Yes Congestive Heart Failure: Yes Valvular Heart Disease: Yes Edema: Yes Pericarditis: Yes Hypertension: Yes Respiratory Problems Chronic Obstructive Pulmonary Disease (COPD): Yes Pneumonia: Yes Pulmonary Edema: Yes Genital/Urinary Problems Renal Disease: No Reproductive Problems Previous Pregnancies: Yes Musculoskeletal Problems Rheumatoid Arthritis: Yes Gout: Yes Head,Eye,Nose,Throat Problems Cataracts: Yes Deafness: Yes Endocrine Problems Diabetes Mellitus Type 1: No Diabetes Mellitus Type 2: No Hypothyroidism: Yes Psychologic Problems Depression: Yes Other Problems Autoimmune Disease: No Blood Transfusions: No Blood Transfusion Reaction: No Anesthesia Reactions: No Cancer: Yes Surgical History Valve Replacement: Yes Hysterectomy: Yes Pacemaker: Yes History of Present Illness HPI Narrative 01/10/2025: Sammi is a 84 y/o female with PMHx of HFpEF (55-60%), Aortic valve replacement and MVR (2013), dual chamber pacemaker, paroxysmal afib/flutter (s/p Ablation), incarated hernia repair (2022), ? COPD, chronic respiratory failure on 1L at home, previous smoker, HTN, CAD s/p PCI 3 stents, aortic and mitral valve repair, hypothyroidism, HLD, who comes in for follow-up after being admitted for influenza pneumonia last week. She reports she is doing well, finished her antibiotic course including Keflex and Tamiflu. She reports that she has only been using her oxygen at night and feels much better. She does complain of a lingering cough and has not been using much for it. She still has not made a decision in regards to where she is going to be moving forward as her just recently and she has multiple decisions to make in terms of if she is going to move. She does not use any inhalers, and has not smoked since her age of 28s. She has not seen a wood drilling machine operator. She also says that her bogger operator is in [place], Dr. Paniagua. She has no other complaints at this time Review of Systems Review of Systems Narrative Review of Systems: Constitutional: No fever, chills, fatigue, weakness, weight loss HEENT: No eye pain, vision loss, ear pain, hearing loss, dysphagia, Cardiovascular: No chest pain, palpitations, edema, pain with walking Respiratory: + cough, no shortness of breath, wheezing GI: No NVD, abdominal pain, constipation, blood in stool, loss of appetite, heartburn Extremities: No presence of pitting edema MSK: No back pain, joint pain, joint swelling Neuro: No dizziness, numbness, weakness, headaches, seizures, tremors Psych: No anxiety, depression Objective/Exam Narrative Physical exam: General: AAOx3, elderly, frail, AD HEENT: Dry mucous membranes, conjunctiva clear, EOMI, PERRLA, Cardiovascular: Ejection systolic murmur heard in the right upper sternal border, radial pulses +2 bilaterally Pulmonary: Lungs CTAB, cough present GI: No tenderness to light or deep palpitation, no guarding, rigidity, rebound tenderness or distension Extremities: No presence of trace or pitting edema in lower extremities bilaterally, dorsalis pedis pulses +2 bilaterally, venous stasis present bilaterally Neuro: AAOx3, no focal motor or sensory deficits in the UE or LE bilat Psych: Good judgement, thought and behavior. Cooperative Assessment & Plan Diagnosis / Problem List (1) Chronic respiratory failure: Status: Acute Qualifiers: Respiratory failure complication: hypoxia Qualified Code(s): J96.11 - Chronic respiratory failure with hypoxia Assessment & Plan: Possible history of emphysematous COPD Has not seen lung doctor or gotten PFTs Uses 1 L of oxygen at home Does not use any inhalers Would benefit from PFTs at some point Was recently discharged from hospital for influenza pneumonia Plan: Rescue albuterol Continue with home oxygen 1 L (2) Cough in adult: Status: Acute Assessment & Plan: Likely related to possible COPD and/or postviral syndrome Patient was recently discharged from the hospital for influenza pneumonia Plan: Tessalon Pearls 100 mg twice daily as needed Advanced Care Planning Advance care planning discussed with:: patient Office Procedures [facility] Level of Care Nursing/Assessment Patient Status: Established Patient Nursing Assessment/Reassessment: Medication Reconciliation, Update PMH in EMR and Vital Signs Coordination of Care: Complex Care and Chronic Disease 1-5, Consent,records obtained, informed consent, Education Simp Pt/Fam, Lab and Imaging orders and Staff clarify orders Established Patient Charge Established Patient Point Assignment: 100 Established Patient Point Charge: Level 3 (80-115)
[2025-01-10 11:24] VITALS: BP 127/76; PULSE 77; RESP 18; TEMP 36.2; O2SAT 91; BMI 19.1
== END 2025-01-10 11:51 | disposition home or self-care (01) ==
LOC: HODAHC 10:59
PROVIDERS: Supervising Provider Internal Medicine
DX: J96.11 Chronic respiratory failure with hypoxia (principal); Z99.81 Dependence on supplemental oxygen
CPT/HCPCS: 99213; G0463